=== PATIENT | male | born 1970 | race Caucasian/White ===

== ENCOUNTER 2020-09-09 16:32 | Outpatient (REF) | payer BC, SELFPAY ==
[2020-09-09 20:59] LABS: Cholesterol 216 mg/dL (<200); HDL Cholesterol 27 mg/dL (40-60); Triglyceride 403 mg/dL (<150)
[2020-09-09 21:34] LABS: LDL CHOLESTEROL 140 mg/dL (<100)
== END 2020-09-09 16:52 ==
LOC: NCHCN 16:32
PROVIDERS: PCP Internal Medicine; Visit Provider Internal Medicine
DX: Z13.220 Encounter for screening for lipoid disorders (principal)
CPT/HCPCS: 80061; 83721

== ENCOUNTER 2020-09-13 01:31 | Outpatient (CLI) | payer BC, SELFPAY ==
--- NOTE | 2020-09-13 | DI.RAD_ITS ---
EXAM: XR CHEST 2V PA LATERAL CLINICAL HISTORY: CHRONIC COUGH,R05 TECHNIQUE: 2D digital imaging was performed. COMPARISON: CR CHEST 2 VIEWS PA,LAT from 01/20/2017 Scanned documents from 01/21/2017 FINDINGS: MEDIASTINUM: Normal. HEART: Normal. PULMONARY VASCULATURE: Normal. LUNGS: Bilateral upper lobe infiltrates. There may also be peribronchial cuffing and bronchiectasis. PLEURAL SPACE: No pleural effusion or pneumothorax. BONE:Within normal limits for the patient's age. OTHER FINDINGS:Normal. IMPRESSION: Bilateral upper lobe infiltrates suspicious for pneumonia. A follow-up chest x-ray is recommended to document complete resolution. A CT scan of the chest may also be considered for further evaluation. DATA REPOSITORY: RADIATION DOSE DELIVERED:
== END 2020-09-13 01:51 ==
PROVIDERS: PCP Internal Medicine; Visit Provider Internal Medicine
DX: R91.8 Other nonspecific abnormal finding of lung field (principal); R05 Cough
CPT/HCPCS: 71046

== ENCOUNTER 2020-09-19 00:58 | Outpatient (CLI) | payer BC, SELFPAY ==
--- NOTE | 2020-09-19 | DI.CT_ITS ---
EXAM: CT CHEST W CLINICAL HISTORY: F/U ABNL CHEST XR,R91.8,CHRONIC COUGH,R05, PULMONARY INFILTRATES. TECHNIQUE: Imaging Protocol: Axial CT angiography was performed with multi-slice acquisition and mu lti-planar and/or 3D reconstructions. CONTRAST MATERIAL: Intravenous: Omnipaque 350 Contrast volume:structured data in ml COMPARISON: CR XR CHEST 2V PA LATERAL from 09/13/2020 FINDINGS: CT examination of the chest was performed with intravenous infusion of 70 cc of Omnipaque 350. There are numerous small intrapulmonary nodules seen throughout both lungs, many of these are in gene rally segmental or lobar groups. There are also numerous tree in bud opacities predominantly in the lung apices, and there are small areas of focal nodular to consolidative opacity, many of which have a spiculated or irregular appearance. Findings are most suggestive of an infectious process, conside r atypical granulomatous infection. Other etiologies including neoplastic disease not excluded on th e basis of this examination. No pleural effusion. Tracheobronchial tree appears intact. No evidence of pulmonary embolic disease. Thoracic aorta is of normal diameter, no thoracic aortic an eurysm or dissection, major branch vessels appear intact. There is mild prominence of mediastinal lymph nodes at multiple sites without gross bulky adenopathy. Images obtained through the upper abdomen show unremarkable appearance of the visualized portions of the liver, spleen, pancreas, adrenals, and kidneys. IMPRESSION: Widespread nodular, consolidative, and spiculated opacities as described above. These include tree i n bud opacities and the findings are most suggestive of an infectious process, consider mycobacterial infection including atypical mycobacterium. RADIATION DOSE DELIVERED: 553.44mGy.cm Total DLP 553.44mGy.cm Total DLP DATA REPOSITORY: All CT scans at this facility are submitted to the National Radiology Data Registry (NRDR) Dose Index Registry (DIR) with the [employer] (ACR). RADIATION OPTIMIZATION: All CT scans at this facility use at least one of these dose optimization te chniques: automated exposure control; mA and/or kV adjustment per patient size (includes targeted exa ms where dose is matched to clinical indication); or iterative reconstruction.
[2020-09-19] MEDS: Omnipaque 350 MG/ML 100 ML BTL IV (08:52)
== END 2020-09-19 01:18 ==
PROVIDERS: PCP Internal Medicine; Visit Provider Internal Medicine
DX: R91.8 Other nonspecific abnormal finding of lung field (principal); R05 Cough
CPT/HCPCS: 71260; J3490

== ENCOUNTER 2020-09-20 09:57 | Outpatient (REF) | payer BC, SELFPAY ==
[2020-09-20 21:17] LABS: Abs Immature Grans 0.02 10^3/uL (0.0-0.06); Absolute Basophil Count 0.04 10^3/uL (0.0-0.2); Absolute Eosinophil Count 0.08 10^3/uL (0.0-0.7); Absolute Lymphocyte Count 1.04 10^3/uL (1.2-3.4); Absolute Monocyte Count 0.68 10^3/uL (0.1-0.8); Absolute Neutrophil Count 5.05 10^3/uL (1.2-6.7); Basophils % 0.6; Eosinophils % 1.2; HCT 43.8 % (40.0-50.0); HGB 14.5 g/dL (13.5-17.5); Immature Grans % 0.3; Lymphocytes % 15.1; MCH 30.1 pg (27.0-33.0); MCHC 33.1 % (32.0-36.0); MCV 90.9 fL (80-95); MPV 10.1 fL (8.0-11.0); Monocytes % 9.8; Nucleated RBC 0 %; Platelet Count 327 10^3/uL (130-400); RBC 4.82 10^6/uL (4.36-5.78); RDW 12.4 % (11.8-14.1); RDW-SD 41.2 fL; WBC 6.91 10^3/uL (4.4-10.8)
[2020-09-20 21:30] LABS: ALT 40 U/L (16-63); AST 29 U/L (15-37); Albumin 4.1 g/dL (3.4-5.0); Alkaline Phosphatase 85 U/L (46-116); Anion Gap 9.3 mmol/L (3-11); BUN 18 mg/dL (7-18); Bilirubin, Total 0.5 mg/dL (0.2-1.0); CO2 26.7 mmol/L (21.0-32.0); CREATININE 1.15 mg/dL (0.70-1.30); Chloride 105 mmol/L (98-107); Glucose 92 mg/dL (74-106); Potassium 4.2 mmol/L (3.5-5.1); Sodium 141 mmol/L (136-145); Total Protein 7.6 g/dL (6.4-8.2)
== END 2020-09-20 10:17 ==
LOC: NCHCN 09:57
PROVIDERS: PCP Internal Medicine; Visit Provider Internal Medicine
DX: R91.8 Other nonspecific abnormal finding of lung field (principal)
CPT/HCPCS: 80053; 85025

== ENCOUNTER 2020-11-26 11:08 | Emergency (ER) | payer BC, SELFPAY ==
[2020-11-26 11:11] VITALS: BP 143/107; PULSE 100; RESP 18; TEMP 36.6; O2SAT 95
--- NOTE | 2020-11-26 12:04 | ED.GENADUL_ITS ---
Discharge Plan Disposition Patient Disposition: HOME Condition: Stable Discharge Details Clinical Impression: Low back pain radiating to right leg Primary Care Provider: Jose Ramon Pantoja ED Provider: Uriel Wright Home Meds and New Rx's Prescriptions: New diazepam [Valium] 5 mg tablet 5 mg PO QHS PRN (Reason: muscle spasm) Qty: 10 RF: 0 Continued lysine 1,000 MG tablet 1 PRNRF: 0 Discharge Instructions Instructions: Acute Low Back Pain (ED), Lumbar Radiculopathy (ED) Additional Instructions: Please take ibuprofen over the counter. Take 600mg by mouth every 6 hours as needed for pain. Please take acetaminophen (tylenol) - 650mg every 6 hours by mouth as needed for pain. Use lidocaine patches?dose according to label. Please contact your primary care physician to arrange follow-up. Call on Saturday. If pain persists over the next 1 to 2 weeks or worsens, you will need additional diagnostic testing. Return to the ER for any worsening or new concerning symptoms. Referrals: Jose Ramon Pantoja MD [Primary Care Provider] - Medical Decision Making 50-year-old male here with atraumatic right paraspinal back pain radiating to right buttock and posterior thigh that started yesterday morning. No bowel or bladder dysfunction. Neurologically intact. Patient has had no recent trauma and has no focal midline tenderness. There is no inflammatory changes overlying the area. Patient is not tried any analgesics or anti-inflammatory medication yet. Concern for disc herniation versus spasm with nerve root irritation. I will give Toradol 30 mg IM. Plan to continue treatment with ibuprofen, Tylenol, and lidocaine patch. I will also provide short course of Valium for nighttime use if spasm is severe. He was encouraged to follow-up with his primary care physician and to return for any worsening or new concerning symptoms. He understands that if symptoms persist additional diagnostic testing may be necessary. HPI General Mode of arrival: ambulatory . Date/Time Provider Initiated Documentation: 11/26/20 11:34 . Limitations to Documentation: no limitations . Information obtained by: patient . HPI Narrative: 50-year-old male presents with chief complaint of posterior right leg pain. Pain started yesterday mornin g upon waking and has persisted. Pain worsened yesterday after sitting in a chair for prolonged Zoom meeting. Pain was severe last night and worse with any movement of his right leg. Pain radiates from posterior right lower back into his posterior thigh. Patient has had no recent traumatic injury. No associated neck pain. No bowel or bladder dysfunction. No fevers. No rash. Related Data Home Medications Medication Instructions Recorded Confirmed lysine 1 PRN 08/21/17 09/29/20 diazepam [Valium] 5 mg PO QHS PRN #10 tab 11/26/20 Previous Rx's Medication Instructions Recorded diazepam [Valium] 5 mg PO QHS PRN #10 tab 11/26/20 Allergies Allergy/AdvReac Type Severity Reaction Status Date / Time No Known Allergies Allergy Unverified 11/26/20 11:15 General Stated Complaint: Nk/Back Pain RICO: 3 Review of Systems All systems reviewed & are unremarkable except as noted in HPI and below Constitutional Constitutional: Denies fever(s) Musculoskeletal Musculoskeletal: Reports as per HPI, Denies numbness and Denies tingling Integumentary/Breasts Skin/Breast: Denies rash Neurologic Neurologic: Denies numbness and Denies tingling [facility] Medical History Boil Colon cancer screening Surgical History Fracture, Open Treatment (10/01/12) IM NAILING R TIBIA SHAFT, ORIF FRACTURE MEDIAL MALLEOLUS Social History Smoking/Tobacco Use Status: Never Smoking risk assessment performed?: Yes Alcohol Intake: current Alcohol Intake frequency: a few times a month Drug use: Never Substance use type: does not use Do you feel safe at home: Yes Do you feel safe in your relationship?: Yes Exam Const General: cooperative and no acute distress HENMT Mouth: moist mucous membranes Eyes Conjunctivae: normal conjunctivae Sclera: normal sclerae Neck Neck: trachea midline and supple Resp Auscultation: clear to auscultation bilaterally, no rales, no rhonchi and no wheezes Cardio Rate: regular rate and not tachycardic Rhythm: regular rhythm GI Palpation: soft, not firm, no guarding, no masses, not rigid and nontender Back/Spine/Pelvis Cervical Spine: cervical ROM normal, No cervical spinal tenderness and No step off deformity Thoracic/Lumbar Spine: paraspinal tenderness (Low lumbar right), No thoracic spinal tenderness and No lumbar spinal tenderness Sacroiliac joints: on the right tender to palpation Skin General skin exam: no rashes or lesions noted Neuro General: patient alert, patient awake, patient oriented x3 and tone normal Motor: strength 5/5 throughout (Bilateral lower extremities) Sensory Exam: no sensory deficits noted (Bilateral lower extremities including no saddle anesthesia) Extrem General: no edema Psych Appearance: grossly normal Mental Status: mental status grossly normal Course Vital Signs Vital signs: Vital Signs Temperature 36.6 C 11/26/20 11:11 Pulse 100 H 11/26/20 11:11 Respiratory Rate 18 11/26/20 11:11 Blood Pressure 143/107 H 11/26/20 11:11 Pulse Oximetry 95 11/26/20 11:11 Temperature 36.6 C 11/26/20 11:11 Temperature Source Temporal Artery Scan 11/26/20 11:11 Pulse 100 H 11/26/20 11:11 Respiratory Rate 18 11/26/20 11:11 Respiratory Effort Non-Labored 11/26/20 11:15 Blood Pressure 143/107 H 11/26/20 11:11 Blood Pressure Position Sitting 11/26/20 11:11 Pulse Oximetry 95 11/26/20 11:11 Oxygen Delivery Method Room Air 11/26/20 11:11 Oxygen Flow Rate 0 11/26/20 11:11 Pain Level 3 11/26/20 11:25
[2020-11-26] MEDS: Acetaminophen 325 MG TAB 650 MG PO (12:17)
[2020-11-26] MEDS: Ketorolac 30 MG/ML VIAL IM (12:18)
[2020-11-26] MEDS: Lidocaine 5% Patch 1 PATCH TP (12:18)
[2020-11-26 12:20] VITALS: BP 111/91; PULSE 104; RESP 18; TEMP 36.8; O2SAT 97
== END 2020-11-26 12:48 | disposition home or self-care (01) ==
PROVIDERS: Emergency Provider Student in an Organized Health Care Education/Training Program; PCP Internal Medicine
DX: M54.16 Radiculopathy, lumbar region (principal)
CPT/HCPCS: 96372; 99284; J1885

== ENCOUNTER 2020-12-16 02:17 | Outpatient (CLI) | payer BC, SELFPAY ==
--- NOTE | 2020-12-16 | DI.CT_ITS ---
EXAM: CT CHEST WO CLINICAL HISTORY: COUGH, F/U ABNL CHEST CT,R05,R93.89,LUNG NODULE. TECHNIQUE: Imaging protocol: Axial computed tomography images were obtained and coronal and sagittal reformatted images were created and reviewed. COMPARISON: CT CT CHEST W from 09/19/2020 FINDINGS: Tracheobronchial tree: Patent where visualized. No areas of bronchiectasis are seen. Pulmonary parenchyma: There has been no change in the diffuse pulmonary process since 09/19/2020. Num erous areas of nodularity and consolidation are present involving all lobes of the lung. There are a reas which show a spiculated or irregular appearance in some areas which show a tree-in-bud appearanc e. The findings remain most prominent in the upper lobes bilaterally. No new abnormal areas are see n in the lungs. Mediastinum and Ines: There are stable mildly enlarged mediastinal lymph nodes. No significant axill chito adenopathy is present. Pleura: No effusion or pneumothorax. Heart: The heart is not dilated. Mild coronary artery calcification is present. No pericardial effus ion. Aorta: Thoracic aorta non-dilated. Upper abdomen: Unremarkable. Lymph nodes: Please see above. Soft tissues: Unremarkable. Bones:Normal. IMPRESSION: Stable widespread pulmonary disease. No significant change since 09/19/2020. No progression of disea se is noted. Differential considerations continue to include infectious or inflammatory process incl uding atypical infections. Neoplastic disease cannot be entirely excluded. RADIATION DOSE DELIVERED: 459.95mGy.cm Total DLP 459.95mGy.cm Total DLP DATA REPOSITORY: All CT scans at this facility are submitted to the National Radiology Data Registry (NRDR) Dose Index Registry (DIR) with the [employer] (ACR). RADIATION OPTIMIZATION: All CT scans at this facility use at least one of these dose optimization te chniques: automated exposure control; mA and/or kV adjustment per patient size (includes targeted exa ms where dose is matched to clinical indication); or iterative reconstruction.
== END 2020-12-16 02:18 | disposition home or self-care (01) ==
LOC: DI 02:18
PROVIDERS: PCP Internal Medicine; Visit Provider Internal Medicine Critical Care Medicine
DX: R05 Cough (principal); R91.8 Other nonspecific abnormal finding of lung field; R59.0 Localized enlarged lymph nodes
CPT/HCPCS: 71250

== ENCOUNTER 2020-12-23 19:09 | Outpatient (CLI) | payer BC, SELFPAY ==
[2020-12-25 15:24] LABS: COVID-19 RT-PCR UVMMC Result Negative (Negative)
== END 2020-12-23 19:10 | disposition home or self-care (01) ==
LOC: LBO 12-28 19:09
PROVIDERS: PCP Internal Medicine; Visit Provider Internal Medicine Critical Care Medicine
DX: Z20.822 Contact with and (suspected) exposure to COVID-19 (principal); Z01.818 Encounter for other preprocedural examination
CPT/HCPCS: U0003

== ENCOUNTER 2021-01-24 02:51 | Outpatient (CLI) | payer BC, SELFPAY ==
[2021-01-25 16:39] LABS: Angiotensin Converting Enzyme 40 U/L (16 - 85)
[2021-01-30 15:04] LABS: Misc Referral (MAYO) See Comments
== END 2021-01-24 02:52 | disposition home or self-care (01) ==
LOC: LBO 02:51
PROVIDERS: Internal Medicine Critical Care Medicine; PCP Internal Medicine; Visit Provider Internal Medicine
DX: D86.89 Sarcoidosis of other sites (principal); R93.89 Abnormal findings on diagnostic imaging of other specified body structures
CPT/HCPCS: 36415; 82164; 86698; 87449; 87385

== ENCOUNTER 2021-08-18 07:44 | Outpatient (CLI) | payer BC, SELFPAY ==
[2021-08-18 10:54] LABS: Source Nasal/Nares
[2021-08-19 15:23] LABS: COVID-19 PCR Negative (Negative)
== END 2021-08-18 07:45 | disposition home or self-care (01) ==
LOC: LBO 07:47
PROVIDERS: PCP Internal Medicine; Visit Provider Internal Medicine Critical Care Medicine
DX: Z20.822 Contact with and (suspected) exposure to COVID-19 (principal); Z01.818 Encounter for other preprocedural examination
CPT/HCPCS: 87635

== ENCOUNTER 2021-08-25 10:13 | Outpatient (CLI) | payer BC, SELFPAY ==
--- NOTE | 2021-08-25 10:30 | RT.EKG_ITS ---
APPROVED REPORT Exam: Resting ECG Reason for Exam: SARCOIDOSIS Patient Location: O HR:74 bpm ECG Measurements Heart Rate 74 AXIS VT 161 P 55 QRSd 88 QRS 48 QT 401 T 40 QTc 447 Conclusion Sinus rhythm...normal P axis, V-rate 60- 99 Normal Electrocardiogram
== END 2021-08-25 10:14 | disposition home or self-care (01) ==
LOC: RT 10:14
PROVIDERS: PCP Internal Medicine; Visit Provider Internal Medicine
DX: D86.9 Sarcoidosis, unspecified (principal)
CPT/HCPCS: 93005; 93010

== ENCOUNTER 2021-09-07 12:06 | Outpatient (REF) | payer BC, SELFPAY ==
[2021-09-09 09:34] LABS: Calcium Urine 33.3 mg/dL (See Note); Calcium Urine 24 hr 366 mg/24hrs (100-300); Timed Urine Volume 1100 mL
== END 2021-09-07 12:07 | disposition home or self-care (01) ==
LOC: LBN 12:06
PROVIDERS: PCP Internal Medicine; Visit Provider Internal Medicine Critical Care Medicine
DX: D86.9 Sarcoidosis, unspecified (principal)
CPT/HCPCS: 81050; 82340

== ENCOUNTER 2023-02-26 13:03 | Outpatient (CLI) | payer OTHER, SELFPAY ==
[2023-02-26 14:25] LABS: Abs Immature Grans 0.03 10^3/uL (0.0-0.06); Absolute Basophil Count 0.04 10^3/uL (0.0-0.2); Absolute Eosinophil Count 0.07 10^3/uL (0.0-0.7); Absolute Lymphocyte Count 1.05 10^3/uL (1.2-3.4); Absolute Monocyte Count 0.55 10^3/uL (0.1-0.8); Absolute Neutrophil Count 6.64 10^3/uL (1.2-6.7); Basophils % 0.5; Eosinophils % 0.8; HCT 44.1 % (40.0-50.0); HGB 14.8 g/dL (13.5-17.5); Immature Grans % 0.4; Lymphocytes % 12.5; MCH 30.3 pg (27.0-33.0); MCHC 33.6 % (32.0-36.0); MCV 90 fL (80-95); MPV 9.3 fL (8.0-11.0); Monocytes % 6.6; Neutrophils % 79.2; Platelet Count 265 10^3/uL (130-400); RBC 4.89 10^6/uL (4.36-5.78); RDW-SD 46.2 fL; WBC 8.38 10^3/uL (4.4-10.8)
[2023-02-26 14:50] LABS: ALT 28 U/L (16-63); AST 11 U/L (15-37); Albumin 3.8 g/dL (3.4-5.0); Alkaline Phosphatase 80 U/L (46-116); Anion Gap 5.4 mmol/L (3-11); BUN 16 mg/dL (7-18); Bilirubin, Total 0.4 mg/dL (0.2-1.0); CO2 28.6 mmol/L (21.0-32.0); CREATININE 0.9 mg/dL (0.70-1.30); Chloride 107 mmol/L (98-107); Estimated GFR 102.12 (mL/min/1.73m2); Glucose 90 mg/dL (74-106); Potassium 4.1 mmol/L (3.5-5.1); Sodium 141 mmol/L (136-145); Total Protein 7.3 g/dL (6.4-8.2)
== END 2023-02-26 13:04 | disposition home or self-care (01) ==
LOC: LBO 13:04
PROVIDERS: PCP Internal Medicine; Visit Provider Internal Medicine Critical Care Medicine
DX: D86.0 Sarcoidosis of lung (principal)
CPT/HCPCS: 36415; 80053; 85025

== ENCOUNTER 2023-02-26 13:50 | Outpatient (CLI) | payer OTHER, SELFPAY ==
--- NOTE | 2023-02-26 13:45 | RT.EKG_ITS ---
APPROVED REPORT Exam: Resting ECG Reason for Exam: SARCOIDOSIS Patient Location: O HR:65 bpm ECG Measurements Heart Rate 65 AXIS GA 159 P 64 QRSd 83 QRS 52 QT 397 T 50 QTc 413 Conclusion Sinus rhythm...normal P axis, V-rate 50- 99 Normal Electrocardiogram
== END 2023-02-26 13:51 | disposition home or self-care (01) ==
LOC: CARDOPNVT 13:50
PROVIDERS: PCP Internal Medicine; Visit Provider Internal Medicine Critical Care Medicine
DX: D86.86 Sarcoid arthropathy (principal)
CPT/HCPCS: 93005; 93010

== ENCOUNTER 2023-11-15 09:09 | Day surgery (SDC) | payer OTHER, SELFPAY ==
--- NOTE | 2023-11-14 20:35 | PDOC.DSDIS_ITS ---
Date of service: 11/15/23 Time of Service: 10:54 Discharge Plan Disposition Patient Disposition: Home Condition: Good Discharge Details Reason For Visit: Colon cancer screening Attending Provider: Frances Prado Primary Care Provider: Jose Ramon Pantoja Home Meds and New Rx's Prescriptions: Continued methotrexate sodium 15 mg tablet 15 mg PO QWEEK folic acid 1 mg tablet 1 mg PO DAILY lysine 1,000 MG tablet 1,000 mg PO DAILY PRN Discontinued bisacodyl [Dulcolax (bisacodyl)] 5 mg tablet,delayed release (DR/EC) 5 mg PO ONCE Qty: 4 0RF Rx Instructions: Take per colonoscopy instructions provided by ordering providers office polyethylene glycol 3350 17 gram/dose powder 17 g PO ONCE Qty: 238 0RF Rx Instructions: Take per colonoscopy instructions provided by ordering providers office Discharge Instructions Additional Instructions: DSU Colonoscopy Post- Op Instructions Instructions for Everyone who is given Anesthesia: For your safety, please do the following for the next twenty-four (24) hours: *Do Not operate a motor vehicle (car, truck, motorcycle, etc.) *Do Not drink alcoholic beverages or use any recreational drugs for the first 24 hours or while taking pain medications. The medications in your body may have a reaction that can be dangerous. *Do Not make any important decisions or sign any important papers. -Okay to resume methotrexate on Saturday Findings: Mild polyp in the colon. Most likely benign. Otherwise normal colon. Follow up: My office will send you a letter in 2 to 3 weeks time with the results of the biopsy and when we want to repeat the colonoscopy, most likely 7 to 10 years time. 1. No lifting over 20 pounds or strenuous activity for the first 24 hours after your procedure. After 24 hours there are no restrictions on your activity but you may feel fatigued for a few days. 2. After you arrive home you may have a light meal and return to your normal diet as you can tolerate it without feeling sick to your stomach. 3. You may have a bloated, gaseous feeling in your belly (abdomen) after a colonoscopy. Passing gas and belching will help. Walking or lying down on your left side with your knees flexed may relieve the discomfort. Call the office at [phone] (Office) or [phone] (Hospital) right away if you notice any of the following: a.Vomiting of blood or ?coffee ground stools?. b.Rectal bleeding 1Tbsp, blood clots or continuous bleeding. c.Severe belly (abdominal) pain. d.A hard distended belly (abdomen) and an inability to pass gas. 4. Please don?t expect to have a normal BM (bowel movement) for 2-3 days after your procedure. 5. If there are questions regarding the findings of your procedure, please contact your doctor 6. If you are unable to contact your doctor with a problem, contact the hospital at [phone]. 7. Continue all your regular medications unless directed otherwise. I understand the above instructions and have no questions. Signature of Patient or Adult Escort Name of Responsible Adult Escort Signature of Nurse Date/Time 4 Activity:: see above Diet:: See above Discharge Orders Discharge Orders: Discharge Order (Routine); Ordered 11/15/23 Ordered By: Frances Prado DS: Diagnosis Discharge Diagnosis (1) Sarcoidosis: Status: Acute (2) Screening for malignant neoplasm of colon performed: Status: Acute Asessment and Plan: The patient is seen and examined after their colonoscopy.? The patient has been able to pass gas.? They are not having abdominal pain.? They have been able to tolerate liquids and a snack.? They do not have any nausea or vomiting.? They are not having any chest pain or shortness of breath.??? They are not having any rectal bleeding. Their vital signs have been stable-see nursing notes. We discussed findings during their colonoscopy, and any biopsies that were done/polyps that were removed. The patient will be sent a letter with any biopsy results, and when to repeat the colonoscopy.-see discharge instructions. Patient was given explicit instructions to follow-up regarding colonoscopy-refer to discharge instructions.? We reviewed resumption of medications. Patient verbalized understanding and discharged in stable and satisfactory condition- See nursing notes. (3) Colon polyp: Status: Acute
--- NOTE | 2023-11-14 20:38 | W.COLOREPORT ---
Date of service: 11/15/23 Time of Service: 10:56 Colonoscopy Report Date of procedure: 11/15/23 Pre-op diagnosis general: Colon cancer screening Post-op diagnosis procedure note: other (Small polyp at 20 cm) Surgeon: Frances Prado Anesthesia Type: General:No Airway Estimated blood loss (mL): 1 Pathology: other Complications: None Disposition: same day Prep: Miralax/Dulcolax Retraction Time: 10 Procedure Description: After informed consent was obtained the patient was taken to the procedure room and placed in a left decubitous position. Monitors were applied and a time out was done. The patients name, date of , procedure, allergies to medications and metal in their body was reviewed. The patient was then sedated. Once sedated and comfortable a rectal exam was done. External exam was normal. Internal exam revealed a normal sphincter tone and no palpable masses. The prostate no no masses The scope was then introduced and retrofelexed. No internal hemorrhoids were identified. The scope was then advanced to the cecum without difficulty. The TI and appendiceal orifice were identified. The prep was BBPS 3 in all segments for a total of 9. The scope was then slowly retracted over 10 minutes back into the rectum. He has a flat 0.5 cm polyp at 20 cm. This is removed with a cold biting forcep. All specimen is retrieved and no bleeding is noted. No AVMs or diverticula are visualized today. Mucosa is pink and healthy with a normal vascular pattern.. The scope was removed and the patient was woken up and taken back to Same day surgery in stable condition. The patient tolerated the procedure well and there were no immediate complications. Follow up: The patient should follow up in 7-10 years, pathology pending, unless they develop changes in bowel habits or other new gastrointestinal complaints.
[2023-11-15 09:24] VITALS: BP 110/81; PULSE 67; RESP 16; TEMP 36.6; O2SAT 96
--- NOTE | 2023-11-15 09:38 | W.ANESPRE ---
General Info Date of Service Date Performed: 11/15/23 Height: 5 ft 7 in Weight: 79.5 kg Body Mass Index (BMI): 27.4 Surgical Procedure: Operation Date: 11/15/23 09:50 Proposed Procedure Side Surgeon gael Prado, DO Meds Allergies and Home Medications Allergies Allergy/AdvReac Type Severity Reaction Status Date / Time No Known Allergies Allergy Unverified 11/14/23 11:20 Home Medication Medication Instructions Recorded lysine 1,000 mg tablet 1,000 mg PO DAILY PRN 08/21/17 folic acid 1 mg tablet 1 mg PO DAILY 09/12/23 methotrexate sodium 15 mg tablet 15 mg PO QWEEK 09/12/23 Current Visit Medications: Current Medications Generic Name Dose Route Start Last Admin Trade Name Freq PRN Reason Stop Dose Admin Hyoscyamine Sulfate 0.125 mg 11/15/23 08:29 Hyoscyamine 0.125 Mg Sl/Oral/Chew SL 12/15/23 08:28 DIRECTED PRN Ringer's Solution 1,000 mls @ 80 mls/hr 11/15/23 06:00 IV 11/15/23 23:59 INFUSION DEMETRIUS IV Miscellaneous Supplies 1 each 11/15/23 06:00 Iv Access IV 11/15/23 23:59 DIRECTED DEMETRIUS Ondansetron HCl 4 mg 11/15/23 08:29 Ondansetron 4 Mg/2 Ml Vial IVP 12/15/23 08:28 Q4H PRN PRN Nausea / Vomiting Sodium Chloride 0 ml 11/15/23 06:00 Normal Saline Flush 10 Ml Syr IV 11/15/23 23:59 PRN PRN Sodium Chloride 0 ml 11/15/23 06:00 Normal Saline 10 Ml Vial IJ 11/15/23 23:59 DIRECTED PRN Sterile Water 0 ml 11/15/23 06:00 Water,Injection,Sterile 10 Ml Vial IJ 11/15/23 23:59 DIRECTED PRN PFSH Active Problems Active Problems: Problem Status Onset Code Screening for malignant neoplasm of colon performed Z12.11 Sarcoidosis D86.9 Sensorineural hearing loss (SNHL) of both ears H90.3 Colon cancer screening Z12.11 Medical History Medical History Chronic cough Pulmonary infiltrate Lumbar back pain Pulmonary sarcoidosis Boil Surgical History Surgical History Fracture, Open Treatment (10/01/12) IM NAILING R TIBIA SHAFT, ORIF FRACTURE MEDIAL MALLEOLUS Tobacco Smoking/Tobacco Use Status: Never Alcohol Alcohol Intake: former Substance Use Substance use: Never Substance use type: does not use Vital Signs and Lab Results Vital Signs Most Recent Vital Signs in EMR: Most Recent Vital Signs Temp Pulse Resp BP Pulse Ox 36.6 C 67 16 110/81 96 11/15/23 09:24 11/15/23 09:24 11/15/23 09:24 11/15/23 09:24 11/15/23 09:24 Lab Results Blood Type / Crossmatch: No Data to Display Complete Blood Count: No Data to Display Complete Metabolic Panel: No Data to Display Liver Function Panel: No Data to Display Coagulation Panel: No Data to Display Cardiac Panel: No Data to Display Arterial Blood Gas: No Data to Display Venous Blood Gas: No Data to Display Pancreas Panel: No Data to Display Thyroid Panel: No Data to Display Infectious Disease: No Data to Display Blood Cultures: No Data to Display Toxicology Panel: No Data to Display Anesthesia Assessment and Plan Anesthesia History Personal History: No History of Anesthesia Complications Family History: No Family History of Anesthesia Complications Exercise Tolerance Exercise Tolerance: Metabolic Equivalents>4 Cardiac & Pulmonary Exam Cardiac Exam: Normal S1/S2 Heart Sounds Pulmonary Exam: Clear Bilateral Breath Sounds Implantable Cardiac Device Does patient have a Pacemaker or an ICD?: No Airway Exam Known Difficult Airway: No Mallampati Class: 3 Mouth Opening: Normal (> 3cm) Thyromental Distance: Greater than 3 cm Neck Range of Motion: Full ROM Neck Circumference: Normal Teeth Condition: Normal Dentition ASA Classification ASA Score: ASA 2 Emergency Case?: No NPO Status NPO Status: NPO Clears >2 hours, Solids >8 hours Anesthesia Plan Resuscitation Status: Full Code Anesthesia Technique: General Anesthesia Airway Planned: Natural Airway Monitors Used: Standard Monitors Preoperative Comments:: 53 yo male for colo. Sig PMHx: sarcoidosis (methotrexate, doing well), back pain. never smoker EKG: sinus. PFTs: normal.
[2023-11-15 09:42] VITALS: BMI 27.4
[2023-11-15] MEDS: Lactated Ringers 1,000 ML 80 ML IV (09:48)
--- NOTE | 2023-11-15 10:34 | BOWEL_PTH ---
PATIENT: [place]ce [place] LOC: [facility] U#:[id number] AGE/SX: 53/M ROOM: RE11/15/[address]: Frances Prado : 1970 BED: DIS: 11/15/2023 SPEC #: [id number] RECD: 11/15/23 12:50 STATUS: CHAPARRITA RE #: [id number] NICHOLE: 11/15/23 10:[address]: Frances Prado DEPT: Surgical Specimen RECD BY: Theresa Fenton ENTERED: 11/15/23 12:51 SP TYPE: Bowel OTHR DR: Jose Ramon Pantoja Tissues: 1 - BIOPSY BOWEL Procedures: GROSS AND MICRO LEVEL 4 Comments: [id number]
[2023-11-15 10:42] VITALS: BP 106/74; PULSE 86; RESP 18; TEMP 36.6; O2SAT 86
[2023-11-15 11:07] VITALS: BP 106/85; PULSE 70; RESP 16; TEMP 36.7; O2SAT 96
--- NOTE | 2023-11-15 11:36 | W.ANESPOSTOP ---
Postoperative Evaluation Date, Time and Location Date Performed: 11/15/23 Time Performed: 11:11 Patient Location: Day Surgery Unit Vital Signs Most Recent Imported Vital Signs: Most Recent Vital Signs Temp Pulse Resp BP Pulse Ox 36.7 C 70 16 106/85 96 11/15/23 11:07 11/15/23 11:07 11/15/23 11:07 11/15/23 11:07 11/15/23 11:07 Pain Score Most Recent Pain Score: Most Recent Pain Score Pain Level 0 11/15/23 11:07 Assessment Mental Status: Awake (Alert & Oriented to Patient Baseline) Airway and Respiratory Function: Patent airway with normal (patient baseline) respiratory exam Cardiovascular Function: Hemodynamically Stable Hydration Status: Adequately Hydrated Nausea & Vomiting: No Nausea or Vomiting Pain: Pt. Denies Any Pain Peripheral Nerve Block: Patient did not receive a nerve block
== END 2023-11-15 11:29 | disposition home or self-care (01) ==
LOC: SUR 09:10
PROVIDERS: PCP Internal Medicine; Visit Provider Surgery
PROC: 0DJD8ZZ Inspection of Lower Intestinal Tract, Via Natural or Artificial Opening Endoscopic (ICD-10-PCS; CPT 45378; principal; 2023-11-15 09:45)
DX: Z12.11 Encounter for screening for malignant neoplasm of colon; K63.5 Polyp of colon; K63.89 Other specified diseases of intestine
CPT/HCPCS: 45380; 88305; J2704

== ENCOUNTER 2024-04-22 07:45 | Outpatient (REF) | payer OTHER, SELFPAY ==
[2024-04-22 16:47] LABS: Anion Gap 8.9 mmol/L (3-11); BUN 20 mg/dL (7-18); CO2 28.1 mmol/L (21.0-32.0); CREATININE 0.9 mg/dL (0.70-1.30); Calculated LDL 169 mg/dL (<100); Chloride 106 mmol/L (98-107); Cholesterol 233 mg/dL (<200); Estimated GFR 100.86 (mL/min/1.73m2); Glucose 96 mg/dL (74-106); HDL Cholesterol 52 mg/dL (40-60); Potassium 4.3 mmol/L (3.5-5.1); Sodium 143 mmol/L (136-145); Triglyceride 60 mg/dL (<150)
== END 2024-04-22 07:46 | disposition home or self-care (01) ==
LOC: NCHCN 07:45
PROVIDERS: PCP Family Medicine; Visit Provider Family Medicine
DX: Z00.00 Encounter for general adult medical examination without abnormal findings (principal); Z13.220 Encounter for screening for lipoid disorders; Z13.228 Encounter for screening for other metabolic disorders
CPT/HCPCS: 80048; 80061

== ENCOUNTER 2024-05-12 09:32 | Inpatient (IN) | payer OTHER, SELFPAY ==
[2024-05-12] VITALS (48 sets, daily range): BP systolic 88–126; BP diastolic 51–90; PULSE 67–90; RESP 9–21; TEMP 36.5–37.7; O2SAT 89–97
[2024-05-12 09:54] LABS: Abs Immature Grans 0.29 10^3/uL (0.0-0.06); Absolute Basophil Count 0.07 10^3/uL (0.0-0.2); Absolute Eosinophil Count 0.09 10^3/uL (0.0-0.7); Absolute Lymphocyte Count 1.03 10^3/uL (1.2-3.4); Absolute Monocyte Count 0.68 10^3/uL (0.1-0.8); Absolute Neutrophil Count 10.94 10^3/uL (1.2-6.7); Basophils % 0.5 %; Eosinophils % 0.7 %; HCT 42.1 % (40.0-50.0); HGB 14.2 g/dL (13.5-17.5); Immature Grans % 2.2 %; Lymphocytes % 7.9 %; MCH 30.7 pg (27.0-33.0); MCHC 33.7 % (32.0-36.0); MCV 91 fL (80-95); MPV 9.8 fL (8.0-11.0); Monocytes % 5.2 %; Neutrophils % 83.5 %; Platelet Count 266 10^3/uL (130-400); RBC 4.63 10^6/uL (4.36-5.78); RDW 13.2 % (11.8-14.1); RDW-SD 44.3 fL
[2024-05-12] MEDS: Ondansetron 4 MG/2 ML VIAL IVP (09:59)
[2024-05-12] MEDS: fentaNYL 100 MCG/2 ML VIAL IVP (09:59)
--- NOTE | 2024-05-12 10:05 | DI.RAD_ITS ---
Exam(s) XR ANKLE RT COMPLETE EXAM: XR ANKLE RT COMPLETE CLINICAL HISTORY: ankle trauma. TECHNIQUE: 2D digital imaging was performed. COMPARISON: No exams were available for comparison FINDINGS: 3 views There is fracture dislocation of the ankle in this patient who has a long intramedullary álvaro in the t ibia as well as an independent screw also noted in the distal tibia. Fracture of the distal fibula significantly displaced. Medial malleolus fracture also noted. No fra cture of the talar dome evident. Medial malleolus fracture also noted. IMPRESSION: Fracture dislocation of the tibiotalar ankle joint. DATA REPOSITORY: RADIATION DOSE DELIVERED:
[2024-05-12 10:08] LABS: ALT 46 U/L (16-63); AST 34 U/L (15-37); Albumin 3.7 g/dL (3.4-5.0); Alkaline Phosphatase 82 U/L (46-116); BUN 17 mg/dL (7-18); Bilirubin, Total 0.54 mg/dL (0.2-1.0); CREATININE 0.9 mg/dL (0.70-1.30); Calcium 8.6 mg/dL (8.5-10.1); Chloride 106 mmol/L (98-107); Estimated GFR 100.86 (mL/min/1.73m2); Glucose 144 mg/dL (74-106); Potassium 3.4 mmol/L (3.5-5.1); Sodium 142 mmol/L (136-145); Total Protein 7.1 g/dL (6.4-8.2)
[2024-05-12] MEDS: Normal Saline 1,000 ML 125 ML IV (10:08)
[2024-05-12] MEDS: Propofol 200 MG/20 ML VIAL 80 MG IVP (10:22)
[2024-05-12 10:26] LABS: INR 1.1 (0.9-1.1); Prothrombin Time 10.9 sec (9.1-11.1)
--- NOTE | 2024-05-12 10:34 | RESPIRATORY ---
RT paged to ED to assist with conscious sedation. Pt placed on NC w/EtCO2 monitoring, suction, ambu bag and oral/nasal airways at bedside. Pt tolerated procedure with vitals HR 70, SpO2 94%, EtCO2 28.
[2024-05-12] MEDS: Ketorolac 15 MG/ML VIAL 10 MG IVP (10:45)
[2024-05-12] MEDS: ACETAMINOPHEN 1,000 MG/100 ML BTL 400 MG IVPB ×2 (10:45→17:01)
--- NOTE | 2024-05-12 11:50 | DI.RAD_ITS ---
Exam(s) XR ANKLE RT COMPLETE EXAM: XR ANKLE RT COMPLETE CLINICAL HISTORY: ankle trauma. TECHNIQUE: 2D digital imaging was performed. COMPARISON: CR XR ANKLE RT COMPLETE from 05/12/2024 FINDINGS: 3 in cast views Significant improved alignment of the by malleolar fracture dislocation of the right ankle. Long int ramedullary álvaro again noted in the tibia as well as in independent screw in the medial malleolus. IMPRESSION: Improved alignment. DATA REPOSITORY: RADIATION DOSE DELIVERED:
--- NOTE | 2024-05-12 11:51 | DI.RAD_ITS ---
Exam(s) XR LUMBAR SPINE AP, LAT EXAM: XR LUMBAR SPINE AP, LAT CLINICAL HISTORY: back pain. TECHNIQUE: 2D digital imaging was performed. COMPARISON: CT CT CHEST WO from 04/13/2022 FINDINGS: 3 views There is slight loss of height of superior endplate of L2 as well as T12, age indeterminate. However , the T12 superior endplate appeared unremarkable on a chest CT scan of April 2022. Disc spaces exhibit normal height. No listhesis. No scoliosis. Sacroiliac joints unremarkable. IMPRESSION: Slight loss of height of superior endplates of T12 and L2. No retropulsed posterior cortex noted at these levels. No disc space narrowing. No listhesis. No facet malalignment. DATA REPOSITORY: RADIATION DOSE DELIVERED:
--- NOTE | 2024-05-12 13:02 | DI.CT_ITS ---
Exam(s) CT THORACIC LUMBAR SPINE WO EXAM: CT THORACIC LUMBAR SPINE WO CLINICAL HISTORY: BACK PAIN. TECHNIQUE: Imaging Protocol: Axial computed tomography images with coronal and sagittal reformatted images were created and reviewed. CONTRAST MATERIAL: Intravenous: Omnipaque 350 Contrast volume:structured data in ml Contrast route:I V - Oral: yes / no COMPARISON: CR XR LUMBAR SPINE AP, LAT from 05/12/2024 FINDINGS: OSSEOUS: There is mild acute appearing compression fracture of superior endplate of L2 with approxima tely 10 percent height loss. No retropulsed cortex. No canal compromise. There is also an acute appearing compression fracture of the superior endplate of T12, also without r etropulsed cortex and no canal compromise. On the sagittal images there is a fracture evident in the left 11th rib but only partially included in the field of view. Increased markings in both lung bas es noted. IMPRESSION: Mild compression fractures of T12 and L2 without canal compromise at these levels. There also appear s to be a fracture of the left 11th rib. Not completely included in the field of view. Cannot exclu de additional rib fractures. If clinically indicated CT scan of the chest abdomen pelvis can be perf ormed. Report and recommendations called by myself to ER physician. RADIATION DOSE DELIVERED: 1,240.37mGy.cm Total DLP DATA REPOSITORY: All CT scans at this facility are submitted to the National Radiology Data Registry (NRDR) Dose Index Registry (DIR) with the [employer] (A[employer]). RADIATION OPTIMIZATION: All CT scans at this facility use at least one of these dose optimization te chniques: automated exposure control; mA and/or kV adjustment per patient size (includes targeted exa ms where dose is matched to clinical indication); or iterative reconstruction.
--- NOTE | 2024-05-12 13:02 | DI.CT_ITS ---
Exam(s) CT LOWER EXTREMITY RT WO EXAM: CT LOWER EXTREMITY RT WO CLINICAL HISTORY: Right Ankle Fracture-Dislocation. TECHNIQUE: Imaging Protocol: Axial computed tomography images with coronal and sagittal reformatted images were created and reviewed. CONTRAST MATERIAL: None COMPARISON: Plain films from earlier today were reviewed FINDINGS: This study is performed post closed reduction of fracture dislocation of the ankle. OSSEOUS: Long intramedullary álvaro in the tibia is seen and there is a healed fracture site in the diap hysis of the tibia around the mid level. An additional independent screw is seen horizontally orient ated just below the inferior tip of the intramedullary álvaro, just above the tibial plafond and. There is an oblique moderately displaced fracture of the distal fibula approximately 2 cm above the t ip of the lateral malleolus. Mild displacement. There is other fracture of the medial malleolus. T he triangular fracture fragment measures 8 by 8 mm and is located 7 mm inferior to the parent bone. The fracture of the medial malleolus is below the level of the independent horizontal screw. There i s no fracture line at the exact level of this screw. There is thin calcification parallel to the volar techs of the posterior malleolus. Probably periost eal stripping at this level. Os trigonum is incidentally noted. Talar dome is intact. There are no fractures of the talus nor of the calcaneus and no incidental osseous tarsal coalition evident. Cuboid, navicular, and cuneiforms appear intact as do the visualized proximal metatarsals. IMPRESSION: Fractures of the malleoli as described above. Mild widening of the mortise but findings are improved since close reduction earlier today. Pre-existing long intramedullary álvaro as well as independent sc rew again noted in the tibia. RADIATION DOSE DELIVERED: 492.84mGy.cm Total DLP DATA REPOSITORY: All CT scans at this facility are submitted to the National Radiology Data Registry (NRDR) Dose Index Registry (DIR) with the [employer] (ACR). RADIATION OPTIMIZATION: All CT scans at this facility use at least one of these dose optimization te chniques: automated exposure control; mA and/or kV adjustment per patient size (includes targeted exa ms where dose is matched to clinical indication); or iterative reconstruction.
--- NOTE | 2024-05-12 13:56 | W.PC.ACHO ---
Registration Status: REG ER Primary Language: Preferred Language: Tajik ED Information & Data Chief Complaint Orthopedic 05/12/24 09:41 Chief Complaint Orthopedic 05/12/24 09:34 Triage Note obvious deformity right 05/12/24 09:34 ankle with mid-lower back pain. cutting trees stump hit from behind Medical / Surgical History (Last Reviewed 11/15/23 @ 09:29 by Cat Morris, RN) Chronic cough Pulmonary infiltrate Lumbar back pain Pulmonary sarcoidosis Boil (Last Updated 12/16/23 @ 12:05 by Yvonne Washburn RN) History of colonoscopy (~11/2023) Fracture, Open Treatment (10/01/12) Most Recent Vital Signs Temperature 36.5 C 05/12/24 09:34 Temperature Source Temporal Artery Scan 05/12/24 09:34 Pulse 77 05/12/24 12:31 Pulse 78 05/12/24 12:31 Respiratory Rate 14 05/12/24 10:20 Respiratory Effort Normal, Non-Labored 05/12/24 09:41 Blood Pressure 112/82 05/12/24 12:31 Blood Pressure Mean 91 05/12/24 12:31 Pulse Oximetry 94 05/12/24 12:31 Respiratory End-tidal CO2 35 05/12/24 11:10 Oxygen Delivery Method Room Air 05/12/24 09:34 Oxygen Flow Rate 0 05/12/24 09:34 Pain Level 2 05/12/24 12:34 Allergies No Known Allergies Allergy (Unverified 05/12/24 09:39) Precautions Isolation Standard precaution 05/12/24 09:41 Active Medications Generic Name Dose Route Start Last Admin Trade Name Freq PRN Reason Stop Dose Admin Sodium Chloride 1,000 mls @ 125 mls/hr 05/12/24 09:45 05/12/24 11:45 Saline 1000ml Bag IV Infused INFUSION DEMETRIUS Infusion IV IV Catheter Type [Left Saline Lock Antecubital] IV Catheter Gauge [Left 18 Antecubital] Diet Orders Category Date Time Status Nothing Per Oral [DIET] Nutrition 05/12/24 Breakfast Active Diagnostics 05/12/24 Range/Units 09:39 WBC 13.10 H (4.4-10.8) 10^3/uL RBC 4.63 (4.36-5.78) 10^6/uL Hgb 14.2 (13.5-17.5) g/dL Hct 42.1 (40.0-50.0) % MCV 91 (80-95) fL MCH 30.7 (27.0-33.0) pg MCHC 33.7 (32.0-36.0) % RDW 13.2 (11.8-14.1) % Plt Count 266 (130-400) 10^3/uL MPV 9.8 (8.0-11.0) fL Immature Gran % 2.2 % Neutrophils % 83.5 % Lymphocytes % 7.9 % Monocytes % 5.2 % Eosinophils % 0.7 % Basophils % 0.5 % Nucleated RBC % 0.0 (0.0-0.3) % Absolute Neutrophils 10.94 H (1.2-6.7) 10^3/uL Absolute Lymphocytes 1.03 L (1.2-3.4) 10^3/uL Absolute Monocytes 0.68 (0.1-0.8) 10^3/uL Absolute Eosinophils 0.09 (0.0-0.7) 10^3/uL Absolute Basophils 0.07 (0.0-0.2) 10^3/uL PT 10.9 (9.1-11.1) sec INR 1.1 (0.9-1.1) Sodium 142 (136-145) mmol/L Potassium 3.4 L (3.5-5.1) mmol/L Chloride 106 (98-107) mmol/L Carbon Dioxide 26.0 (21.0-32.0) mmol/L Anion Gap 10.0 (3-11) mmol/L BUN 17 (7-18) mg/dL Creatinine 0.9 (0.70-1.30) mg/dL Est GFR (CKD-EPI 2020) 100.86 (mL/min/1.73m2) Glucose 144 H (74-106) mg/dL Calcium 8.6 (8.5-10.1) mg/dL Total Bilirubin 0.54 (0.2-1.0) mg/dL AST 34 (15-37) U/L ALT 46 (16-63) U/L Alkaline Phosphatase 82 (46-116) U/L Total Protein 7.1 (6.4-8.2) g/dL Albumin 3.7 (3.4-5.0) g/dL ABO/Rh O Negative Antibody Screen NEGATIVE Intake and Output - 24 Hour Total 07/02/24 09:23 thru 05/12/24 11:45 Intake Total 1100 Balance 1100 Weight 82.554 kg Intake: IV 1100 Falls Risk Assessment History of Falls Admit Due to Fall 05/12/24 12:34 Contributing Factors No Factors 05/12/24 12:34 Ambulatory Aids Uses ambulatory device + 05/12/24 12:34 Tubes/Lines With any additional score 05/12/24 12:34 Gait Evaluation W/any additional score 05/12/24 12:34 Cognition No cognitive impairment 05/12/24 12:34 Fall Total Score 95 05/12/24 12:34 Level of Risk Maximum Risk 05/12/24 12:34 Notes 05/12/24 10:34 Respiratory by Alejandra Gillis RT paged to ED to assist with conscious sedation. Pt placed on NC w/EtCO2 monitoring, suction, ambu bag and oral/nasal airways at bedside. Pt tolerated procedure with vitals HR 70, SpO2 94%, EtCO2 28. Initialized on 05/12/24 10:34 - END OF NOTE v v v v v v v v v Sending and/or Receiving Nurses: Please use comment section below to note any information pertinent to the patient hand-off not included above. Information / Comments: Report received from:Dawit Deng RN
--- NOTE | 2024-05-12 14:09 | ANES.PREOP_ITS ---
General Info Date of Service Date Performed: 05/13/24 Height: 5 ft 7 in Weight: 82.554 kg Body Mass Index (BMI): 28.5 Surgical Procedure: Operation Date: 05/12/24 15:10 Proposed Procedure Side Surgeon p Ankle ORIF Right Charles Roberts MD Meds Allergies and Home Medications Allergies Allergy/AdvReac Type Severity Reaction Status Date / Time No Known Allergies Allergy Unverified 05/12/24 09:39 Home Medication Medication Instructions Recorded lysine 1,000 mg tablet 1,000 mg PO DAILY PRN 08/21/17 folic acid 1 mg tablet 1 mg PO DAILY 09/12/23 acetaminophen 500 mg tablet 1,000 mg (2 x 500 mg) PO Q8H PRN 05/12/24 pain #90 tabs aspirin 81 mg tablet,delayed 81 mg PO BID 30 days #60 tabs 05/12/24 release ibuprofen 600 mg tablet 600 mg PO TID PRN pain #60 tabs 05/12/24 Current Visit Medications: Current Medications Generic Name Dose Route Start Last Admin Trade Name Freq PRN Reason Stop Dose Admin Sodium Chloride 1,000 mls @ 125 mls/hr 05/12/24 09:45 05/12/24 11:45 Saline 1000ml Bag IV Infused INFUSION DEMETRIUS Infusion Ondansetron HCl 4 mg/ Sodium 52 mls @ 200 mls/hr 05/12/24 11:15 Chloride IVPB Q6H PRN PRN IV Miscellaneous Supplies 1 each 05/12/24 09:45 Iv Access-Emergency Dept IV DIRECTED [facility] IV Miscellaneous Supplies 1 each 05/12/24 11:15 Iv Access IV DIRECTED DEMETRIUS Oxycodone HCl 0 mg 05/12/24 11:15 Oxycodone 5 Mg Tab PO Q3H PRN PRN Pain Sodium Chloride 0 ml 05/12/24 09:43 Normal Saline Flush 10 Ml Syr IVP PRN PRN Sodium Chloride 0 ml 05/12/24 20:00 Normal Saline Flush 10 Ml Syr IVP BID DEMETRIUS Sodium Chloride 0 ml 05/12/24 09:43 Normal Saline 10 Ml Vial IJ DIRECTED PRN Sodium Chloride 0 ml 05/12/24 11:15 Normal Saline Flush 10 Ml Syr IVP PRN PRN Sodium Chloride 0 ml 05/12/24 20:00 Normal Saline Flush 10 Ml Syr IVP BID DEMETRIUS Sodium Chloride 0 ml 05/12/24 11:15 Normal Saline 10 Ml Vial IJ DIRECTED PRN PFSH Active Problems Active Problems: Problem Status Onset Code Colon polyp K63.5 Screening for malignant neoplasm of colon performed Z12.11 Sarcoidosis D86.9 Sensorineural hearing loss (SNHL) of both ears H90.3 Colon cancer screening Z12.11 Medical History Medical History Chronic cough Pulmonary infiltrate Lumbar back pain Pulmonary sarcoidosis Boil Surgical History Surgical History History of colonoscopy (~11/2023) Hyperplastic polyp/inflammatory polyp path sent Fracture, Open Treatment (10/01/12) IM NAILING R TIBIA SHAFT, ORIF FRACTURE MEDIAL MALLEOLUS Tobacco Smoking/Tobacco Use Status: Never Alcohol Alcohol Intake: current Alcohol intake frequency: a few times a week Alcohol type: beer and hard liquor Substance Use Substance use: Never Substance use type: does not use Vital Signs and Lab Results Vital Signs Most Recent Vital Signs in EMR: Most Recent Vital Signs Temp Pulse Resp BP Pulse Ox 37.4 C 74 18 125/89 95 05/12/24 13:53 05/12/24 13:53 05/12/24 13:53 05/12/24 13:53 05/12/24 13:53 Lab Results 05/12/24 09:39 05/12/24 09:39 Blood Type / Crossmatch: 2 Antibody Screen NEGATIVE 05/12/24 Complete Blood Count: 2 White Blood Count 13.10 10^3/uL (4.4-10.8) H 05/12/24 09:39 Red Blood Count 4.63 10^6/uL (4.36-5.78) 05/12/24 09:39 Hemoglobin 14.2 g/dL (13.5-17.5) 05/12/24 09:39 Hematocrit 42.1 % (40.0-50.0) 05/12/24 09:39 Platelet Count 266 10^3/uL (130-400) 05/12/24 09:39 Complete Metabolic Panel: 2 Sodium 142 mmol/L (136-145) 05/12/24 09:39 Potassium 3.4 mmol/L (3.5-5.1) L 05/12/24 09:39 Chloride 106 mmol/L (98-107) 05/12/24 09:39 Carbon Dioxide 26.0 mmol/L (21.0-32.0) 05/12/24 09:39 BUN 17 mg/dL (7-18) 05/12/24 09:39 Creatinine 0.9 mg/dL (0.70-1.30) 05/12/24 09:39 Est GFR (CKD-EPI 2020) 100.86 (mL/min/1.73m2) 05/12/24 09:39 Calcium 8.6 mg/dL (8.5-10.1) 05/12/24 09:39 Albumin 3.7 g/dL (3.4-5.0) 05/12/24 09:39 Glucose 144 mg/dL (74-106) H 05/12/24 09:39 Liver Function Panel: 2 Alanine Aminotransferase (ALT/SGPT) 46 U/L (16-63) 05/12/24 09: 39 Aspartate Amino Transf (AST/SGOT) 34 U/L (15-37) 05/12/24 09:39 Coagulation Panel: 2 INR International Normalized Ratio 1.1 (0.9-1.1) 05/12/24 09:3 9 Prothrombin Time 10.9 sec (9.1-11.1) 05/12/24 09:39 Cardiac Panel: 2 No Data to Display Arterial Blood Gas: 2 No Data to Display Venous Blood Gas: 2 No Data to Display Pancreas Panel: 2 No Data to Display Thyroid Panel: 2 No Data to Display Infectious Disease: 2 No Data to Display Blood Cultures: 2 No Data to Display Toxicology Panel: 2 No Data to Display Anesthesia Assessment and Plan Anesthesia History Personal History: No History of Anesthesia Complications Family History: No Family History of Anesthesia Complications Exercise Tolerance Exercise Tolerance: Metabolic Equivalents>4 Cardiac & Pulmonary Exam Cardiac Exam: Normal S1/S2 Heart Sounds Pulmonary Exam: Clear Bilateral Breath Sounds Implantable Cardiac Device Does patient have a Pacemaker or an ICD?: No Airway Exam Known Difficult Airway: No Mallampati Class: 3 Mouth Opening: Normal (> 3cm) Thyromental Distance: Greater than 3 cm Neck Range of Motion: Full ROM Neck Circumference: Normal Teeth Condition: Normal Dentition ASA Classification ASA Score: ASA 2 Emergency Case?: No NPO Status NPO Status: NPO Clears >2 hours, Solids >8 hours Anesthesia Plan Resuscitation Status: Full Code Anesthesia Technique: General Anesthesia Airway Planned: LMA Pain Management: Surgeon and patient request nerve block Monitors Used: Standard Monitors Preoperative Comments:: 53 yo male to OR for ORIF ankle fracture. Sig PMHx: sarcoidosis (no long on methotrexate, doing well, breathing feels good), back pain. never smoker EKG: sinus. PFTs: normal. Previous Anes: - [place], prop, ephedrine, natural airway, no issues. Discussed risks and benefits of regional anesthesia, would like to proceed.
--- NOTE | 2024-05-12 15:11 | PDOC.DSDIS_ITS ---
Discharge Plan Disposition Patient Disposition: Home Condition: Good Discharge Details Reason For Visit: Right ankle fracture dislocation Admit Date/Time: 05/12/24 11:16 Admit Provider: Charles Roberts Attending Provider: Charles Roberts Primary Care Provider: Chase Mehta Home Meds and New Rx's Prescriptions: New aspirin 81 mg tablet,delayed release (DR/EC) 81 mg PO BID 30 Days Qty: 60 0RF acetaminophen 500 mg tablet 1,000 mg PO Q8H PRN Qty: 90 0RF Rx Instructions: Take two tablets up to every 8 hours as needed for pain ibuprofen 600 mg tablet 600 mg PO TID PRN (Reason: pain) Qty: 60 0RF Continued folic acid 1 mg tablet 1 mg PO DAILY lysine 1,000 MG tablet 1,000 mg PO DAILY PRN Discharge Instructions Additional Instructions: Ankle ORIF Discharge Instructions Activity: You are NON WEIGHTBEARING. You should keep the leg elevated as much as possible. You may wiggle your toes and move your hip and knee. Dressings: You should keep your splint clean and dry. Do NOT get wet or dirty. If you have issues with your splint, please call the office at [phone] or the hospital after hours. Medications: - You should take Tylenol and Ibuprofen around the clock for baseline pain. - You have been prescribed a stronger narcotic for breakthrough pain. - You should take a Baby Aspirin (81mg) twice a day for blood clot prevention. Follow-up: 2 weeks Referrals: Charles Roberts MD [ [facility] STAFF PHYSICIAN] - Activity:: Activity as Tolerated Equipment/Supplies:: Walker Diet:: As Tolerated Discharge Orders Discharge Orders: Discharge Order (Routine); Ordered 05/12/24 Ordered By: Frances Mathur
[2024-05-12] MEDS: oxyCODONE 5 MG TAB PO ×2 (15:31→18:34)
--- NOTE | 2024-05-12 15:35 | W.ORTHOCONSU ---
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 It is unclear exactly what happened but the top portion of this tree fell while he had turned away, hitting him from behind. He feels that he hit it on his back primarily. It did not encounter his head. He did not lose consciousness but is not sure what happened. He had some immediate pain about the right ankle and over his back. There is obvious deformity about his right ankle. He does not tend. He was brought to the emergency department. He has a history of a previous tibial shaft fracture fixed with intramedullary álvaro years ago. He reports some pain over the midportion of his back. He denies any distal numbness or tingling. He denies any difficulty breathing. He has no chest pain. He denies any loss of consciousness, headache. All of his pain is primarily in the right ankle and in the mid back. Consults Consult date: 05/12/24 Requesting physician: Scotty Blank Consult Reason Hit be tree Assessment and Plan Assessment and plan (1) Closed fracture dislocation of right ankle: Status: Acute Assessment and plan: Bryce is a 54-year-old suffered a fracture dislocation about the right ankle. This needs to be fixed. While this is not an urgency to be fixed given the pain and the displacement which occurred it would be good to fix it sooner than later. I initially had plan to try taken to the operating room today, however, other emergent surgeries came and was postponed. Therefore, I will try to attempt fixation tomorrow. In the interim, he should be nonweightbearing on the right lower extremity. He should keep the leg elevated. We will do as needed ketorolac, acetaminophen, and oxycodone for pain control. He may return to regular diet today. N.p.o. after midnight tonight. Qualifiers: Encounter type: initial encounter Qualified Code(s): S82.891A - Other fracture of right lower leg, initial encounter for closed fracture (2) T12 compression fracture: Status: Acute Assessment and plan: Stable injury. Will attempt mobilization physical therapy tomorrow. May increase head of bed as tolerated. Recommend abdominal binder for mobilization. (3) Compression fracture of L2: Status: Acute (4) Back contusion: Status: Acute Review of Systems All systems reviewed & are unremarkable except as noted in HPI and below PFSH All Active Problems (Updated 05/12/24 @ 20:21 by Charles Roberts MD) Compression fracture of L2 (Acute) T12 compression fracture (Acute) Closed fracture dislocation of right ankle (Acute) Ankle fracture, right (Acute) Back pain (Acute) Back contusion (Acute) Accidentally struck by tree (Acute) Colon polyp (Acute) Screening for malignant neoplasm of colon performed (Acute) Sarcoidosis (Acute) Sensorineural hearing loss (SNHL) of both ears (Acute) Colon cancer screening (Acute) Medical History Chronic cough Pulmonary infiltrate Lumbar back pain Pulmonary sarcoidosis Boil Surgical History History of colonoscopy (~11/2023) Hyperplastic polyp/inflammatory polyp path sent Fracture, Open Treatment (10/01/12) IM NAILING R TIBIA SHAFT, ORIF FRACTURE MEDIAL MALLEOLUS Social History Smoking/Tobacco Use Status: Never Smoking risk assessment performed?: Yes Alcohol Intake: current Alcohol Intake frequency: a few times a week Alcohol type: beer and hard liquor Drug use: Never Substance use type: does not use Housing: house Do you feel safe at home: Yes Do you feel safe in your relationship?: Yes Exam Const General: cooperative, healthy appearing, uncomfortable, no acute distress and well developed Nutritional Appearance: average body habitus Orientation: alert, awake and oriented x3 HENMT Head: normal to inspection, normocephalic and atraumatic Neck Neck: normal visual inspection and full ROM Resp Effort & Inspection: normal respiratory effort Back/Spine/Pelvis Thoracic/Lumbar Spine: No thoracic and lumbar spine normal to inspection, paraspinal tenderness (Lower thoracic and upper lumbar spine), thoracic spinal tenderness (Lower lumbar spine), lumbar spinal tenderness (Upper lumbar spine), No straight leg raise positive and other (Superficial abrasions seen moving diagonally across the mid back, approxima) Neuro General: moves all extremities, normal light touch, pain and propioception and no focal motor deficits Motor: strength 5/5 throughout (Except for obvious limitations due to fracture on the right side) Sensory Exam: no sensory deficits noted Extrem Other: Right lower extremity is within a splint. Medial skin has been stretched from the injury but is intact. Sensation intact to light touch of the deep and superficial peroneal nerve and tibial nerve. He is able demonstrate active toe extension and flexion. Results Last Vital Signs Temp 37.4 C 05/12/24 13:53 Pulse 74 05/12/24 13:53 Resp 18 05/12/24 13:53 BP 125/89 05/12/24 13:53 Pulse Ox 95 05/12/24 13:53 Labs 05/12/24 09:39 05/12/24 09:39 Labs: Laboratory Results - last 24 hr 05/12/24 09:39 WBC 13.10 H RBC 4.63 Hgb 14.2 Hct 42.1 MCV 91 MCH 30.7 MCHC 33.7 RDW 13.2 Plt Count 266 MPV 9.8 Immature Gran % 2.2 Neutrophils % 83.5 Lymphocytes % 7.9 Monocytes % 5.2 Eosinophils % 0.7 Basophils % 0.5 Nucleated RBC % 0.0 Absolute Neutrophils 10.94 H Absolute Lymphocytes 1.03 L Absolute Monocytes 0.68 Absolute Eosinophils 0.09 Absolute Basophils 0.07 PT 10.9 INR 1.1 Sodium 142 Potassium 3.4 L Chloride 106 Carbon Dioxide 26.0 Anion Gap 10.0 BUN 17 Creatinine 0.9 Est GFR (CKD-EPI 2020) 100.86 Glucose 144 H Calcium 8.6 Total Bilirubin 0.54 AST 34 ALT 46 Alkaline Phosphatase 82 Total Protein 7.1 Albumin 3.7 ABO/Rh O Negative Antibody Screen NEGATIVE Imaging Imaging Studies: X-ray of the right ankle obtained in the emergency department demonstrates a fracture patient with an oblique distal fibula fracture transverse me malleolar fracture. The foot is rotated 90 degrees relation to the shaft of the tibia. Postreduction x-rays show a reduced tibiotalar joint with some slight lateral displacement. CT scan of the right ankle joint demonstrates a slightly comminuted fracture about the anterior aspect of the medial malleolus. Today oblique fracture about the distal fibula. There is a tibial nail and an independent screw seen within the tibia but without fracture of the tibia. There may be some slight comminution at the rim of the posterior malleolus but no true posterior malleolar fracture either. CT scan of the thoracolumbar spine shows a nondisplaced compression fracture of T12 and L2. This does not involve the middle or posterior columns. There is no retropulsion.
--- NOTE | 2024-05-12 16:15 | ED.GENADUL_ITS ---
Discharge Plan Disposition Patient Disposition: Admit to [facility] Condition: Stable Condition: Good Discharge Details Chief Complaint: Orthopedic Clinical Impression: Accidentally struck by tree, Back contusion, Ankle dislocation, Back pain, Ankle fracture, right Admit Date/Time: 05/12/24 11:16 Admit Provider: Charles Roberts Attending Provider: Charles Roberts Primary Care Provider: Chase Mehta ED Provider: Scotty Blank Discharge Instructions Activity:: Activity as Tolerated Equipment/Supplies:: Walker Diet:: As Tolerated [facility] General Date/Time Provider Initiated Documentation: 05/12/24 09:40 . Limitations to Documentation: no limitations . Information obtained by: patient . HPI Narrative: 54y M with PMH of sarcoidosis presents for evaluation of acute right leg trauma. onset just prior to arrival. patient was was working on a tree and the tree fell. The patient reports that it did not land on him or knocked him down but he fell down to his knees. He was wearing a helmet, but denies any head injury or loss of consciousness. He reports once he fell to his knees he had immediate knowledge that there was something wrong with his right leg and he did not attempt to stand up. He reports that his coworkers came over and laid him down on his left side. EMS transported the patient they reported a good pulse in his right foot. Related Data Home Medications Medication Instructions Recorded Confirmed lysine 1,000 mg tablet 1,000 mg PO DAILY PRN 08/21/17 05/12/24 folic acid 1 mg tablet 1 mg PO DAILY 09/12/23 05/12/24 acetaminophen 500 mg tablet 1,000 mg (2 x 500 mg) PO Q8H PRN 05/12/24 pain #90 tabs aspirin 81 mg tablet,delayed 81 mg PO BID 30 days #60 tabs 05/12/24 release ibuprofen 600 mg tablet 600 mg PO TID PRN pain #60 tabs 05/12/24 Previous Rx's Medication Instructions Recorded acetaminophen 500 mg tablet 1,000 mg (2 x 500 mg) PO Q8H PRN 05/12/24 pain #90 tabs aspirin 81 mg tablet,delayed 81 mg PO BID 30 days #60 tabs 05/12/24 release ibuprofen 600 mg tablet 600 mg PO TID PRN pain #60 tabs 05/12/24 Allergies Allergy/AdvReac Type Severity Reaction Status Date / Time No Known Allergies Allergy Unverified 05/12/24 09:39 General Stated Complaint: Orthopedic RICO: 3 Exam Narrative Exam Narrative: Review of Systems: All systems reviewed & are unremarkable except as noted in HPI and below Well-developed, + distressed NCAT No midline C-spine tenderness, step-off or deformity PERRL, normal conjunctiva RRR no murmur Unlabored respiratory effort no chest wall tenderness, no crepitus, clear lungs bilaterally Nondistended abdomen soft, nontender Pelvis stable Midline back without step-off or deformity, there is a large abrasion across the lower back, there is some paraspinal tenderness in the lumbar area, neurovascularly intact Right lower extremity with obvious ankle deformity dislocation, skin is intact, no open wounds, there is a 2+ DP pulse. Area marked No rashes or lesions. no focal neurologic deficits, moving all extremities appropriately, good strength and sensation throughout Appropriate mood and affect Course Vital Signs Vital signs: Vital Signs Temperature 36.5 C 05/12/24 09:34 Pulse 71 05/12/24 09:34 Respiratory Rate 18 05/12/24 09:34 Blood Pressure 119/70 05/12/24 09:34 Pulse Oximetry 95 05/12/24 09:34 Temperature 37.7 C H 05/12/24 15:35 Temperature Source Tympanic 05/12/24 15:35 Pulse 74 05/12/24 15:35 Pulse Rhythm Regular 05/12/24 13:53 Pulse 78 05/12/24 12:31 Respiratory Rate 16 05/12/24 15:35 Respiratory Effort Normal, Non-Labored 05/12/24 13:53 Respiratory Depth Normal 05/12/24 13:53 Respiratory Pattern Normal 05/12/24 13:53 Blood Pressure 125/90 05/12/24 15:35 Blood Pressure Mean 91 05/12/24 12:31 Pulse Oximetry 95 05/12/24 15:35 Respiratory End-tidal CO2 35 05/12/24 11:10 Oxygen Delivery Method Room Air 05/12/24 15:35 Oxygen Flow Rate 0 05/12/24 15:35 Pain Level 5 05/12/24 15:35 Lab/Test Results Lab/Test Results: Laboratory Tests Range/Units 05/12/24 09:39 WBC (4.4-10.8) 10^3/uL 13.10 H RBC (4.36-5.78) 10^6/uL 4.63 Hgb (13.5-17.5) g/dL 14.2 Hct (40.0-50.0) % 42.1 MCV (80-95) fL 91 MCH (27.0-33.0) pg 30.7 MCHC (32.0-36.0) % 33.7 RDW (11.8-14.1) % 13.2 Plt Count (130-400) 10^3/uL 266 MPV (8.0-11.0) fL 9.8 Immature Gran % % 2.2 Neutrophils % % 83.5 Lymphocytes % % 7.9 Monocytes % % 5.2 Eosinophils % % 0.7 Basophils % % 0.5 Nucleated RBC % (0.0-0.3) % 0.0 Absolute Neutrophils (1.2-6.7) 10^3/uL 10.94 H Absolute Lymphocytes (1.2-3.4) 10^3/uL 1.03 L Absolute Monocytes (0.1-0.8) 10^3/uL 0.68 Absolute Eosinophils (0.0-0.7) 10^3/uL 0.09 Absolute Basophils (0.0-0.2) 10^3/uL 0.07 PT (9.1-11.1) sec 10.9 INR (0.9-1.1) 1.1 Sodium (136-145) mmol/L 142 Potassium (3.5-5.1) mmol/L 3.4 L Chloride (98-107) mmol/L 106 Carbon Dioxide (21.0-32.0) mmol/L 26.0 Anion Gap (3-11) mmol/L 10.0 BUN (7-18) mg/dL 17 Creatinine (0.70-1.30) mg/dL 0.9 Est GFR (CKD-EPI 2020) (mL/min/1.73m2) 100.86 Glucose (74-106) mg/dL 144 H Calcium (8.5-10.1) mg/dL 8.6 Total Bilirubin (0.2-1.0) mg/dL 0.54 AST (15-37) U/L 34 ALT (16-63) U/L 46 Alkaline Phosphatase (46-116) U/L 82 Total Protein (6.4-8.2) g/dL 7.1 Albumin (3.4-5.0) g/dL 3.7 ABO/Rh O Negative Antibody Screen NEGATIVE Procedures Orthopedic Fracture Reduction Fracture #1: Time Out Performed: Yes Side: right Fracture Reduction Location: tibia and fibula Analgesia: procedural sedation Technique: direct manipulation Post Reduction X-rays Demonstrate: acceptable reduction Post-reduction neuro exam: intact Post-reduction vascular exam: intact Splint Applied: Yes Patient Tolerated Procedure: well and no complications Orthopedic Splinting/Casting Injury #1: Side: right Lower Extremity Injury Location: ankle Lower Extremity Immobilizer: posterior splint and stirrup splint Procedural Sedation Indication: fracture/dislocation reduction ASA Class: I Time of Last PO Intake: 07:00 Preparation: air sampling and monitoring applied, pulse oximeter, capnometry used, supplemental O2 applied, suction/airway equipment at bedside and IV secured IV Propofol dose (mg): 80 Patient Tolerated Procedure: well and no complications Complications: none Medical Decision Making Emergent evaluation of acute traumatic right ankle injury. Patient does have an obvious dislocation and deformity. He is neurovascularly intact with a pulse there. Initial plan for pain control and further traumatic workup, but will reduce the ankle as quickly as possible. X-ray imaging reviewed of the ankle, obvious dislocation and fractures noted. There is hardware in place. Discussed with orthopedics, they recommend reduction. Patient consented for conscious sedation. Conscious sedation performed without complication. Right ankle reduced with 2+ pulse, skin remained intact. Splint applied. Postreduction film reviewed, there is improved alignment. Discussed with orthopedic surgery who evaluated the patient in the emergency department and will admit the patient to their service for further operative management. A CT of the spine was obtained given his back pain, the patient was out of the emergency department prior to the imaging study being read. Orthopedics will follow-up and manage any additional findings. Medical Records Medical records reviewed: Yes I reviewed the patient's medical records. Lab Data Lab results reviewed: Yes I reviewed the patient's lab results. Quality:SDOH Health Related Social Needs: No Data to Display PFSH All Active Problems (Updated 05/12/24 @ 16:36 by Scotty Blank MD) Ankle fracture, right (Acute) Back pain (Acute) Ankle dislocation (Acute) Back contusion (Acute) Accidentally struck by tree (Acute) Colon polyp (Acute) Screening for malignant neoplasm of colon performed (Acute) Sarcoidosis (Acute) Sensorineural hearing loss (SNHL) of both ears (Acute) Colon cancer screening (Acute) Medical History Chronic cough Pulmonary infiltrate Lumbar back pain Pulmonary sarcoidosis Boil Surgical History History of colonoscopy (~11/2023) Hyperplastic polyp/inflammatory polyp path sent Fracture, Open Treatment (10/01/12) IM NAILING R TIBIA SHAFT, ORIF FRACTURE MEDIAL MALLEOLUS Social History Smoking/Tobacco Use Status: Never Smoking risk assessment performed?: Yes Alcohol Intake: current Alcohol Intake frequency: a few times a week Alcohol type: beer and hard liquor Drug use: Never Substance use type: does not use Housing: house Do you feel safe at home: Yes Do you feel safe in your relationship?: Yes PAWSS Have you Been Recently Intoxicated or Drunk Within the Last 30 days?: No Have you Ever Experienced Previous Episodes of Alcohol Withdrawal?: No Have you ever Experienced Withdrawal Seizures?: No Have you ever Experienced Delirium Tremens(DT)s?: No Have you ever undergone Alcohol Rehabilitation Treatment (i.e, inpt ot outpatient treatment programs)?: No Have you ever Experienced Blackouts?: No Have you ever Combined Alcohol with other Downers within the last 90 days?: No Have you ever Combined Alcohol with any other Substance of Abuse during the last 90 days?: No Positive Blood Alcohol level on Presentation? [PCS.BAL]: No Evidence of Increased Autonomic Activity (i.e. HR>120, tremor, sweating, agitation, nausea)?: No Result: 0
[2024-05-12] MEDS: Normal Saline Flush 10 ML SYR IVP (20:40)
[2024-05-12] MEDS: Ketorolac 15 MG/ML VIAL IVP (20:58)
[2024-05-12] MEDS: HYDROcodone 5/Acetaminophen 325 TAB PO (20:59)
[2024-05-13] VITALS (32 sets, daily range): BP systolic 106–130; BP diastolic 63–92; PULSE 70–91; RESP 12–22; TEMP 36.2–37.8; O2SAT 88–96; BMI 28.5
[2024-05-13] MEDS: ACETAMINOPHEN 1,000 MG/100 ML BTL 400 MG IVPB ×2 (01:12→10:14)
[2024-05-13] MEDS: HYDROmorphone 2 MG/ML SYR 1 MG IVP ×2 (01:13→02:32)
[2024-05-13] MEDS: Ketorolac 15 MG/ML VIAL IVP ×3 (02:32→19:43)
[2024-05-13] MEDS: Lactated Ringers 1,000 ML 80 ML IV (05:58)
--- NOTE | 2024-05-13 07:24 | PGE_ITS ---
Date of Service Date of service: 05/13/24 Time of Service: 07:26 Assessment and Plan Assessment and plan (1) Compression fracture of L2: Status: Acute (2) T12 compression fracture: Status: Acute Assessment and plan: Plan for mobilization with physical therapy. I do expect some pain with mobilization. Abdominal binder when out of the bed. This may be applied in the bed prior to mobilizing. It should be kept relatively tight around the abdomen to increase intra-abdominal pressure, causing some support to the lumbar and lower thoracic spine. Pain management before any mobilization. Nonweightbearing on the right lower extremity. (3) Closed fracture dislocation of right ankle: Status: Acute Assessment and plan: Currently reduced in the splint. Unfortunately surgery was postponed from yesterday due to other emergent cases. Plan to proceed today for open reduction internal fixation of the right ankle. I do have some concerns about the skin over the medial side of the ankle but either way this should be stabilized and fixed. I discussed the technical details of the case. I reviewed the risks include bleeding, infection, pain, stiffness, nonunion, nonunion, hardware prominence, hardware failure, damage to nerves and vessels, damage to muscle and tendons, need repeat procedure, blood clot, worsening arthritis. Despite these risk, he elects to proceed. Keep NPO. Maintenance fluids ordered. May have oral medications. Qualifiers: Encounter type: initial encounter Qualified Code(s): S82.891A - Other fracture of right lower leg, initial encounter for closed fracture Subjective Subjective Interval history since last seen: Bryce reports to be doing relatively well. He has been able to mobilize himself in the bed and raise the head of the bed with some pain but controlled. He did not receive any oral medications last night but did receive 2 doses of IV hydromorphone. The oxycodone and hydromorphone appear to be working to control some of the pain. He denies any new symptoms. No numbness or tingling. No chest pain or shortness of breath. Exam Narrative Exam Narrative: Resting in the hospital bed with the head of bed about 40 degrees. The right leg is elevated. No acute distress. Alert and orient x 3. Objective Last Vital Signs Temp 37.8 C H 05/13/24 07:21 Pulse 87 05/13/24 07:21 Resp 17 07/03/24 07:21 BP 112/82 05/13/24 07:21 Pulse Ox 91 L 05/13/24 07:21 Laboratory Results - last 24 hr 05/12/24 09:39 WBC 13.10 H RBC 4.63 Hgb 14.2 Hct 42.1 MCV 91 MCH 30.7 MCHC 33.7 RDW 13.2 Plt Count 266 MPV 9.8 Immature Gran % 2.2 Neutrophils % 83.5 Lymphocytes % 7.9 Monocytes % 5.2 Eosinophils % 0.7 Basophils % 0.5 Nucleated RBC % 0.0 Absolute Neutrophils 10.94 H Absolute Lymphocytes 1.03 L Absolute Monocytes 0.68 Absolute Eosinophils 0.09 Absolute Basophils 0.07 PT 10.9 INR 1.1 Sodium 142 Potassium 3.4 L Chloride 106 Carbon Dioxide 26.0 Anion Gap 10.0 BUN 17 Creatinine 0.9 Est GFR (CKD-EPI 2020) 100.86 Glucose 144 H Calcium 8.6 Total Bilirubin 0.54 AST 34 ALT 46 Alkaline Phosphatase 82 Total Protein 7.1 Albumin 3.7 ABO/Rh O Negative Antibody Screen NEGATIVE PAWSS Have you Been Recently Intoxicated or Drunk Within the Last 30 days?: No Have you Ever Experienced Previous Episodes of Alcohol Withdrawal?: No Have you ever Experienced Withdrawal Seizures?: No Have you ever Experienced Delirium Tremens(DT)s?: No Have you ever undergone Alcohol Rehabilitation Treatment (i.e, inpt ot outpatient treatment programs)?: No Have you ever Experienced Blackouts?: No Have you ever Combined Alcohol with other Downers within the last 90 days?: No Have you ever Combined Alcohol with any other Substance of Abuse during the last 90 days?: No Positive Blood Alcohol level on Presentation? [PCS.BAL]: No Evidence of Increased Autonomic Activity (i.e. HR>120, tremor, sweating, agitation, nausea)?: No Result: 0 Time Spent with Patient Time Spent with Patient: 25-34 minutes Time was spent: preparing to see the patient(eg.review tests), ordering medications,tests, procedures, referring, communicating with other health child day care provider, indepentently interpreting results and counseling the patient
[2024-05-13] MEDS: Normal Saline Flush 10 ML SYR IVP ×2 (08:10→19:42)
[2024-05-13] MEDS: Folic Acid 1 MG TAB PO (08:15)
[2024-05-13] MEDS: Lactated Ringers 1,000 ML 1000 ML IV (08:15)
[2024-05-13] MEDS: oxyCODONE 5 MG TAB PO ×3 (08:15→23:23)
--- NOTE | 2024-05-13 09:29 | INITIAL_ITS ---
Date of service: 05/13/24 Time of Service: 09:29 Care Management Initial Assmt Initial Assessment Reason for Hospitalization: right ankle fracture, compression fractures of T 12 and L2 Functional Status/Living Situation Patient Presentation: Bryce was in surgery when CM attempted to meet with him. His Myra was present however and was able to answer questions. She shared that Bryce is very independent and stoic and may need encouragement to accept medication to help control his pain. She stated that he is even reluctant to take Tylenol. In addition to the displaced ankle fracture, Brcye has compression fractures of T12 and L2 as well as a fractured rib. When he was injured, a tree fell directly onto his back. Myra reported that Dr. Roberts stated that the additional inj uries may slow his recovery due to [id number] discomfort. Bryce's length of stay is uncertain at this time. He did work with PT this morning and was able to log roll in bed, get into a sitting position and take a few steps with a walker. PT is recommending home health PT at discharge. Town of Residence: [place] Resides with: Spouse Significant Other/Family: Local [employer]: and 2 daughters who live in [place] Employment Status: Employed ([place] for [employer]) Instrumental Activities of Daily Living (ADLs): Independent Medications Medication Management: No Issues/Barriers identified Advance Directives Advance Directives: Do you have an Advance Directive: N 05/10/23 11:22 AD On File at [facility]: N 05/10/23 11:22 Date Asked 05/12/24 05/12/24 09:36 AD Date Reviewed 05/12/24 05/12/24 16:48 COLST On File at [facility] COLST Date Scanned Code Status Resuscitation Status Full Code Portal Pt does not currently have a portal and education provided: No Insurance Coverage/Financial Issues Insurance: [place] [employer] [facility] ACO Member: No Care Team Visit Care Team Role Provider Type Chase Mehta MD Primary Care Provider NON-[facility] STAFF PHYSICIAN InPatient Tera Dias Other Providers OTHER Scotty Blank MD Emergency Provider [facility] STAFF PHYSICIAN Charles Roberts MD Admit Provider [facility] STAFF PHYSICIAN Attending Provider Discharge Potential Discharge Needs: Surgical F/U Appt Anticipated Barriers to Discharge: None Identified Patient/Family Education Needs: Review discharge instructions, discuss Ask Me Three Transportation: Private vehicle Plan: Anticipate Bryce will be discharged home medically cleared. PT has recommended new home health PT. He will follow up with his orthopedic surgeon and plan of care and transport with family. CM will support Bryce and his discharge planning needs. PFSH All Active Problems (Updated 05/12/24 @ 20:21 by Charles Roberts MD) Compression fracture of L2 (Acute) T12 compression fracture (Acute) Closed fracture dislocation of right ankle (Acute) Ankle fracture, right (Acute) Back pain (Acute) Back contusion (Acute) Accidentally struck by tree (Acute) Colon polyp (Acute) Screening for malignant neoplasm of colon performed (Acute) Sarcoidosis (Acute) Sensorineural hearing loss (SNHL) of both ears (Acute) Colon cancer screening (Acute) Medical History Chronic cough Pulmonary infiltrate Lumbar back pain Pulmonary sarcoidosis Boil Surgical History History of colonoscopy (~11/2023) Hyperplastic polyp/inflammatory polyp path sent Fracture, Open Treatment (10/01/12) IM NAILING R TIBIA SHAFT, ORIF FRACTURE MEDIAL MALLEOLUS Social History Smoking/Tobacco Use Status: Never Smoking risk assessment performed?: Yes Alcohol Intake: current Alcohol Intake frequency: a few times a week Alcohol type: beer and hard liquor Drug use: Never Substance use type: does not use Housing: house Do you feel safe at home: Yes Do you feel safe in your relationship?: Yes SDOH(Care Management) Screening Will the Patient Participate in the Screening?: Declined to provide Do you worry about having a steady place to live?: choose not to answer In the past 12 months, have you had to go without electric, gas, oil or water in your home?: choose not to answer Have you or anyone in your house had to go without enough food to eat?: choose not to answer Has lack of transportation kept you from medical appointments or from doing things needed for daily living?: choose not to answer Has anyone in your support network made you feel unsafe for any reason?: choose not to answer
--- NOTE | 2024-05-13 09:54 | IN_ITS ---
PT Notes Visit Reasons: Right ankle fracture dislocation Inpatient Physical Therapy Evaluation Date: 05/13/24 Referring Doctor: Dr. Roberts PT Orders: PT CONSULT: Awaiting RLE surgery with T12, L2 Compression fx. Work on mobilization, NWB RLE Precautions: NWB RLE Patient Profile/Admitting Diagnosis: Patient admitted 05/12/24 after being struck by tree while at work. Admitted for management of compression fx T12, L2, and right ankle fx and dislocation, awaiting surgical fixation later this morning. Social History/Home Situation: Lives in private home with . 3 [address], single rail. Typically sleeps on second floor, but bedroom and bathroom available on the first floor. Works for the [employer] as [employer]. is present and supportive during PT session. Equipment Owned/DME: Was provided with abdominal binder prior to PT session Subjective: Bryce states that he is feeling good. He's very anxious to return home. States that his pain is well managed, and he had pain meds about an hour before PT session. Reports 0/10 pain if he's not moving. He'd like to try walking. Objective: General Observation: Resting in bed with RLE elevated. DEZ wrap to right foot and ankle. IV in RUE. Mental Status: A&Ox3. Very pleasant and cooperative. Pain: no pain at rest. Manageable with movement. ROM: Right Upper Extremity: WFL for shoulder, elbows, wrists bilat Left Upper Extremity: WFL for shoulder, elbows, wrists bilat Right Lower Extremity: Hip and knee ROM WFL. Able to wiggle toes. Right ankle immobilized. Left Lower Extremity: Hip, knee and ankle ROM WFL. Strength: Right Upper Extremity: WFL Left Upper Extremity: WFL Right Lower Extremity: Able to perform LAQ, SLR without difficulty Left Lower Extremity: WFL Bed Mobility/Transfers: supine-sit: via log roll with abdominal binder, max cues and SBA sit-supine: via log roll with abdominal binder, max cues and mod A to bilat LEs. educated on assistance to LEs sit-stand: CGA, cues for technique stand-sit: CGA, cues for technique Gait: Able to take 3 steps with FWW, abdominal binder in place, NWB RLE. Balance: Static Sitting: normal Dynamic Sitting: good Static Standing: fair Dynamic Standing: fair Special Tests: Mobility Limitations Standardized Measure [facility] AM-PAC 6 clicks Basic Mobility Inpatient Short Form: Raw Score: 17 CMS Score: 51% impairment Informed Consent/Education: Patient instructed in purpose of PT consult and plan of care. Treatment: Initial Evaluation: [id number] Therapeutic Activities: [id number] Instructed in application of abdominal binder: apply in supine position, instructed in application Instructed in log roll technique and supine<->sit with avoidance of trunk rotation Instructed in transfer techniques and ambulation with NWB RLE, maintenance of back-protective positions Assessment: Patient is a 54 year old male referred to physical therapy services for mobilization following trauma, with compression fx T12, L2, and right ankle fx and dislocation. He is currently awaiting surgical fixation of right ankle fx. Patient presents with clinical signs and symptoms consistent with diagnosis, as demonstrated by the following impairment level findings: 1. pain 2. NWB RLE 3. acute compression fx of T12, L2 Impairments are contributing to the following functional limitations: 1. increased time to perform bed mobility with modified technique 2. unable to tolerate community distance ambulation 3. unable to manage stairs 4. unable to independently transfer into bed Patient is assessed as a Low [id number] complexity based on the following: History: Active and independent 54 year old male presenting 1 day s/p trauma in the work place resulting in compression fractures of T12 and L2, as well as right ankle fx and dislocation. No significant complicating factors. Examination: as above Presentation: evolving Decision Making: low complexity Goals: Goals X1 week 1. Supine-Sit : supervision 2. Sit-Supine : supervision 3. Sit-Stand : supervision with FWW and abdominal binder 4. Stand-Sit : supervision with FWW and abdominal binder 5. Bed-Chair : supervision with FWW and abdominal binder 6. Chair-Bed : supervision with FWW and abdominal binder 7. Gait: ambulate 25' with supervision with FWW and abdominal binder 8. Stairs: manage 3 steps with bilat UE support and min A x 1 Plan of Care/Treatment Plan: 1-2x/day, 7 days/week x 1 week. Plan of care has been reviewed with the TRAFFIC CONTROL OFFICER providing the service under Physical Therapy direction. Initiate Physical Therapy intervention for strengthening, bed mobility, transfers, gait, stairs, balance training, use of assistive device. Will continue patient education in protective positioning for back and NWB RLE. DISCHARGE RECOMMENDATIONS: Home with services (would benefit from HH PT consult for patient education to maximize functional mobility in the home) Anticipate need for FWW at time of discharge to maximize stability as patient ambulates with modified weight bearing TREATMENT CODE/TIME: [id number] ([id number], [id number]) Please sign an return this page within 30 days if you agree with the above POC. Thank you! Physician Signature Date [facility] PFS All Active Problems (Updated 05/12/24 @ 20:21 by Charles Roberts MD) Compression fracture of L2 (Acute) T12 compression fracture (Acute) Closed fracture dislocation of right ankle (Acute) Ankle fracture, right (Acute) Back pain (Acute) Back contusion (Acute) Accidentally struck by tree (Acute) Colon polyp (Acute) Screening for malignant neoplasm of colon performed (Acute) Sarcoidosis (Acute) Sensorineural hearing loss (SNHL) of both ears (Acute) Colon cancer screening (Acute) Medical History Chronic cough Pulmonary infiltrate Lumbar back pain Pulmonary sarcoidosis Boil Surgical History History of colonoscopy (~11/2023) Hyperplastic polyp/inflammatory polyp path sent Fracture, Open Treatment (10/01/12) IM NAILING R TIBIA SHAFT, ORIF FRACTURE MEDIAL MALLEOLUS
--- NOTE | 2024-05-13 12:54 | W.ANESNERVE ---
Nerve Block Single Injection Procedure Date and Time Date Performed: 05/13/24 Procedure Start: 12:45 Location Where Procedure Performed Procedure Location: PACU Reason Performed: Other Requesting Provider: Charles Roberts Timeout Performed Timeout Performed: Yes Monitoring Used ECG, Blood Pressure and SpO2 Sterility Sterility: Hand Hygiene, Surgical Cap, Surgical Mask, Sterile Gloves and Chlorhexidine Sedation Given During Procedure Sedation Given (Indicate Dose Given): No Sedation given Patient Mental Status Patient Mental Status: Awake Nerve Block 1st Nerve Block: Laterality: Right Block Type: Popliteal Sciatic Ultrasound Image Saved?: Yes Needle / Catheter Used: 100mm SonoPlex II Local Anesthetic Bolus (Indicate Dose Given): Lidocaine used for local infiltration of skin and Bupivacaine 0.375% Dose:: 20 mcg Additives (Indicate Dose Given): Epinephrine to make 1:400,000 (2.5mcg/ml) Dose:: 50 mcg Ultrasound: Sterile probe cover and gel used Nerve Stimulator: Supplement to Ultrasound use and No twitch or parasthesia noted < 0.5 mA Paresthesia: None Procedure Tolerated: No Complications Procedure Outcome: Successful Performed By: Seb Miller 2nd Nerve Block: Laterality: Right Block Type: Adductor Canal Ultrasound Image Saved?: Yes Needle / Catheter Used: 100mm SonoPlex II Local Anesthetic Bolus (Indicate Dose Given): Lidocaine used for local infiltration of skin and Bupivacaine 0.375% Dose:: 10 mL Additives (Indicate Dose Given): Epinephrine to make 1:400,000 (2.5mcg/ml) Dose:: 25 mcg Ultrasound: Sterile probe cover and gel used Nerve Stimulator: Supplement to Ultrasound use and No twitch or parasthesia noted < 0.5 mA Paresthesia: None Procedure Tolerated: No Complications Procedure Outcome: Successful Performed By: Seb Miller
--- NOTE | 2024-05-13 13:04 | PDOC.DSDIS_ITS ---
Date of service: 05/13/24 Time of Service: 13:04 Discharge Plan Disposition Patient Disposition: Home Condition: Good Discharge Details Reason For Visit: Right ankle fracture dislocation Admit Date/Time: 05/12/24 11:16 Admit Provider: Charles Roberts Attending Provider: Charles Roberts Primary Care Provider: Chase Mehta Home Meds and New Rx's Prescriptions: New aspirin 81 mg tablet,delayed release (DR/EC) 81 mg PO BID 30 Days Qty: 60 0RF acetaminophen 500 mg tablet 1,000 mg PO Q8H PRN Qty: 90 0RF Rx Instructions: Take two tablets up to every 8 hours as needed for pain ibuprofen 600 mg tablet 600 mg PO TID PRN (Reason: pain) Qty: 60 0RF Continued folic acid 1 mg tablet 1 mg PO DAILY lysine 1,000 MG tablet 1,000 mg PO DAILY PRN Discharge Instructions Additional Instructions: Ankle ORIF Discharge Instructions Activity: You are NON WEIGHTBEARING. You should keep the leg elevated as much as possible. You may wiggle your toes and move your hip and knee. Dressings: You should keep your splint clean and dry. Do NOT get wet or dirty. If you have issues with your splint, please call the office at [phone] or the hospital after hours. Medications: - You should take Tylenol and Ibuprofen around the clock for baseline pain. - You have been prescribed a stronger narcotic for breakthrough pain. - You should take a Baby Aspirin (81mg) twice a day for blood clot prevention. Follow-up: 2 weeks Referrals: Charles Roberts MD [ [facility] STAFF PHYSICIAN] - Activity:: Activity as Tolerated Equipment/Supplies:: Walker Diet:: As Tolerated Discharge Orders Discharge Orders: Discharge Order (Routine); Ordered 05/13/24 Ordered By: Jessee Salinas DS: Diagnosis Discharge Diagnosis (1) Compression fracture of L2: Status: Acute (2) T12 compression fracture: Status: Acute (3) Closed fracture dislocation of right ankle: Status: Acute
[2024-05-13] MEDS: ceFAZolin 2 GM/50 ML BAG 100 GM (13:15)
[2024-05-13] MEDS: Tranexamic Acid 1,000 MG/10 ML VIAL 1000 MG (13:15)
[2024-05-13] MEDS: Bupivacaine 0.25% Pres-Free W/EPI 30 ML VIAL (13:49)
--- NOTE | 2024-05-13 14:39 | DI.RAD_ITS ---
Exam(s) XR ANKLE RT 2V EXAM: XR ANKLE RT 2V CLINICAL HISTORY: RIGHT ANKLE FRACTURE. TECHNIQUE: 2D digital imaging was performed. COMPARISON: CR XR ANKLE RT COMPLETE from 05/12/2024 FINDINGS: Intraoperative fluoroscopy provided during right ankle ORIF. See procedure report for details. Total fluoroscopy time 23.4 seconds IMPRESSION: Radiation exposure index/cumulative dose:Emma,r= 0.4284 mGy DATA REPOSITORY: RADIATION DOSE DELIVERED:
--- NOTE | 2024-05-13 14:52 | ROE_ITS ---
Date of service: 05/13/24 Time of Service: 13:30 Operative Note Operative Note DATE OF PROCEDURE: 05/13/24 PRE-OP DIAGNOSIS: Right Ankle Fracture Dislocation POST-OP DIAGNOSIS: same PROCEDURE: Open Reduction and Internal Fixation of RIGHT Ankle - Lateral and Medial Malleolus SURGEON: Charles Roberts AUTOMOTIVE ALIGNMENT SPECIALIST: Jessee Salinas ANESTHESIA TYPE: General LMA/ETT and Primary Nerve Block Refer to Anesthesia Record ESTIMATED BLOOD LOSS: 50 PATHOLOGY: none sent TOURNIQUET TIME: 0 COMPLICATIONS: None Patient was transported to: PACU Patient's condition: stable Indications: Bryce who presented to the Emergency Department after he was hit by a tree and injuring his right ankle. X-rays confirmed the diagnosis of a right ankle fracture-dislocation. The dislocation was reduced in the ED. I reviewed the possible treatment options and given the fracture, I recommended operative fixation. I discussed the technical details of the surgery. I reviewed the risks such as bleeding, infection, pain, stiffness, malunion, nonunion, hardware prominence, hardware faiilure, malrotation, damage to nerves and vessels, blood clot. Despite these risks, he agreed to proceed. Findings: There was a fracture of the fibula and medial malleolus which was reduced with traction and internal rotation and direct manipulation. The fibula was secured with a lag screw and neutrualization plate. A single screw was used in the medial malleolus. Procedure Description: Bryce was greeted in the preoperative area. Consent was previously reviewed and signed. Once in the operating room, anesthesia was administered. The patient was transferred to the operating table in the supine position. He was positioned in the supine position with the operative side placed onto a bone foam ramp. All bony prominences were well padded. Arms were placed out to the side, padded, and secured. A single dose of TXA, 1 gram, was then administered IV. Prophylactic antibiotics, Cefazolin 2 grams, was given for prophylactic antibiotics. A timeout was performed for safe surgery. The right leg was prepped with Chloraprep. The leg was draped with a split and extremity drape. The medial skin was intact although is some areas of trauma but with no defect. The ankle is also grossly unstable. Starting with a medial curvilinear incision, expose the medial fracture. This was biased anteriorly where the fracture was located. This was taken down through the skin. Saphenous vein was protected. The fracture was easily identifiable and was displaced quite significantly anteriorly and laterally. The posterior tibial tendon was also quite prominent under the medial malleolus. The joint was opened up and thoroughly irrigated. There is no loose fragments seen. There is no significant cartilage damage. The ankle was then reduced with traction internal rotation keeping the talus reduced. Attention was then turned to the lateral side. A longitudinal incision was made overlying the fibula. This was taken off sharply to skin. There is significant soft tissue disruption and hematoma in this area. This was dissected down to the fibula. The fracture was these identified. The fracture was distracted and early hematoma was removed for better visualization. A mabry elevator was utilized to evaluate this oblique fracture. With the right manipulation of the fracture and manipulation of the foot I was able to reduce it nearly anatomic. It was held with a clamp. A lag screw was then placed utilizing a 3.5 drill proximally and 2.5 mm drill distally. A lag screw was then placed perpendicular to the fracture line with excellent fixation. A one third tubular plate was then selected on the back table and contoured for the distal fibula. It was placed on the fibula and then secured there with a locking screw distally and a nonlocking screw proximally. X-ray was obtained to demonstrate appropriate position of the plate and reduction of the fracture. Cortical screws were placed proximally and additional locking screws placed distally. Unfortunately, with the location of the fracture I was unable to place a third locking screw distally. Attention was then turned back to the medial side. The anterior fracture fragment was grossly unstable and therefore I decided to place a single screw for this. I was able to reduce it with some effort utilizing a K wire in the fracture as a joystick as well as a dental pick. With this reduced I was able to drive the K wire through the tibia. This seemed to produce anatomical reduction. I then continued with drilling the fragment and then placing a screw . The screw was able to hold the fracture well and additional K wire was kept in place to keep from rotating. Once this was fully seated the K wire was removed. The ankle was taken to range of motion. There is no joint displacement. Stress view also did not show any widening of the joint therefore no syndesmotic fixation was obtained. Both wounds were then thoroughly irrigated. It was noticed during the irrigation that some of the fracture fragment medially had fragmented around the screw head. However, the piece seem to still be stable and therefore this was left in place. I did inject the deep tissues with 0.25% bupivacaine. I used a #2-0 Vicryl to reapproximate deltoid and periosteum over this fracture fragment to encompass the fracture fragment pieces around the screw head. This was done in multiple positions closing the soft tissues over that fracture line. On the medial wound, deep tissues were reapproximated with #3-0 Vicryl and the skin was closed with a #4-0 nylon. For the lateral wound, the deep fascia and tissues was closed overlying the plate with a #0 Vicryl. The deep subcutaneous tissue was closed with a #2-0 Vicryl. The skin was closed with a running i nterrupted?mattress suture with a 4-0 nylon. No tourniquet was used. There is minimal bleeding. At the end the case all counts were correct. The wounds were dressed with Xeroform, 4 x 4, ABD, Webril, short leg splint. He will remain nonweightbearing. He will continue with physical therapy.
--- NOTE | 2024-05-13 15:39 | W.ANESPOSTOP ---
Postoperative Evaluation Date, Time and Location Date Performed: 05/13/24 Time Performed: 15:39 Patient Location: PACU Vital Signs Most Recent Imported Vital Signs: Most Recent Vital Signs Temp Pulse Resp BP Pulse Ox 36.5 C 77 19 126/76 92 05/13/24 15:20 05/13/24 15:30 05/13/24 15:31 05/13/24 15:30 05/13/24 15:31 Pain Score Most Recent Pain Score: Most Recent Pain Score Pain Level [Right Ankle] 7 05/12/24 20:40 Pain Level [Back] 4 05/13/24 08:10 Pain Level [Right Lower Ankle] 2 05/12/24 12:34 Pain Level 0 05/13/24 11:06 Assessment Mental Status: Awake (Alert & Oriented to Patient Baseline) Airway and Respiratory Function: Patent airway with normal (patient baseline) respiratory exam (continuous pulse ox ordered for floor. strongly encoraged to cough/deep breath and use IS frequently. ) Cardiovascular Function: Hemodynamically Stable Hydration Status: Adequately Hydrated Nausea & Vomiting: No Nausea or Vomiting Pain: Pt. Denies Any Pain Peripheral Nerve Block: Patient did not receive a nerve block
--- NOTE | 2024-05-13 16:04 | CHAPLAIN ---
Bryce was resting in bed when I visited. He had just received Reiki and was relaxed. His , Myra, was receiving Reiki. According to ED notes Bryce was injured while working taking down trees yesterday. I explained my role and offered support. I will visit visit again.
[2024-05-13] MEDS: ceFAZolin 1 GM/50 ML BAG IVPB (18:29)
[2024-05-13] MEDS: Methocarbamol 750 MG TAB PO (19:41)
[2024-05-13] MEDS: Acetaminophen 325 MG TAB 650 MG PO (19:42)
[2024-05-14] MEDS: Ketorolac 15 MG/ML VIAL IVP ×3 (01:48→14:12)
[2024-05-14] MEDS: Acetaminophen 325 MG TAB 650 MG PO (01:48)
[2024-05-14] MEDS: ceFAZolin 1 GM/50 ML BAG IVPB ×2 (02:15→09:12)
[2024-05-14 06:25] VITALS: BP 130/93; PULSE 70; RESP 18; TEMP 37; O2SAT 94
[2024-05-14 07:01] LABS: HCT 37.3 % (40.0-50.0); HGB 12.3 g/dL (13.5-17.5); MCH 30.3 pg (27.0-33.0); MCV 92 fL (80-95); MPV 9.9 fL (8.0-11.0); Platelet Count 180 10^3/uL (130-400); RBC 4.06 10^6/uL (4.36-5.78); RDW 13.2 % (11.8-14.1); RDW-SD 45.2 fL; WBC 12.85 10^3/uL (4.4-10.8)
[2024-05-14 07:28] LABS: Anion Gap 7.6 mmol/L (3-11); BUN 14 mg/dL (7-18); CO2 26.4 mmol/L (21.0-32.0); CREATININE 0.9 mg/dL (0.70-1.30); Calcium 8.5 mg/dL (8.5-10.1); Chloride 106 mmol/L (98-107); Estimated GFR 100.86 (mL/min/1.73m2); Glucose 141 mg/dL (74-106); Magnesium 2.1 mg/dL (1.8-2.4); Potassium 4.3 mmol/L (3.5-5.1); Sodium 140 mmol/L (136-145)
[2024-05-14] MEDS: Methocarbamol 750 MG TAB PO ×2 (09:11→13:18)
[2024-05-14] MEDS: Folic Acid 1 MG TAB PO (09:11)
[2024-05-14] MEDS: Enoxaparin 40 MG/0.4 ML SYR SC (09:12)
[2024-05-14] MEDS: Normal Saline Flush 10 ML SYR IVP ×2 (09:13→14:11)
--- NOTE | 2024-05-14 10:19 | W.PM.PROGNOT ---
Date of Service Date of service: 05/14/24 Time of Service: 10:00 Assessment and Plan Assessment and plan (1) Compression fracture of L2: Status: Acute (2) T12 compression fracture: Status: Acute Assessment and plan: Continue mobilization with physical therapy. I do expect some pain with mobilization. Abdominal binder when out of the bed. This may be applied in the bed prior to mobilizing. It should be kept relatively tight around the abdomen to increase intra-abdominal pressure, causing some support to the lumbar and lower thoracic spine. Pain management before any mobilization. Touchdown weightbearing on the right lower extremity. (3) Closed fracture dislocation of right ankle: Status: Acute Assessment and plan: Doing well status post open reduction internal fixation of right ankle fracture dislocation. Block is still actively working. Continue immobilization physical therapy, touchdown weightbearing right lower extremity. Lovenox for DVT prophylaxis during hospital with aspirin 81 mg twice daily on discharge. Elevate when not mobilizing. Qualifiers: Encounter type: initial encounter Qualified Code(s): S82.891A - Other fracture of right lower leg, initial encounter for closed fracture Subjective Subjective Interval history since last seen: Bryce had some pain in the back last night but this responded very well to pain medications and he had a good night sleep. He still has not motion of his toes and no sensation distally in the foot from the block. He has been using the IS and taking bigger breaths and coughs. No other acute concerns. Exam Narrative Exam Narrative: Sitting up in the bed. No acute distress. Alert and orient x 3. No longer requiring oxygen. Breathing comfortably without audible wheezing or distress or work of breathing. Right lower extremity is in a splint. There is no active motion of the toes. No sensation in toes, from block. Dressings clean dry and intact. Objective Last Vital Signs Temp 37 C 05/14/24 06:25 Pulse 70 05/14/24 06:25 Resp 18 05/14/24 06:25 BP 130/93 H 05/14/24 06:25 Pulse Ox 94 05/14/24 06:25 Laboratory Results - last 24 hr 05/14/24 06:14 WBC 12.85 H RBC 4.06 L Hgb 12.3 L Hct 37.3 L MCV 92 MCH 30.3 MCHC 33.0 RDW 13.2 Plt Count 180 MPV 9.9 Sodium 140 Potassium 4.3 Chloride 106 Carbon Dioxide 26.4 Anion Gap 7.6 BUN 14 Creatinine 0.9 Est GFR (CKD-EPI 2020) 100.86 Glucose 141 H Calcium 8.5 Magnesium 2.1 PAWSS Have you Been Recently Intoxicated or Drunk Within the Last 30 days?: No Have you Ever Experienced Previous Episodes of Alcohol Withdrawal?: No Have you ever Experienced Withdrawal Seizures?: No Have you ever Experienced Delirium Tremens(DT)s?: No Have you ever undergone Alcohol Rehabilitation Treatment (i.e, inpt ot outpatient treatment programs)?: No Have you ever Experienced Blackouts?: No Have you ever Combined Alcohol with other Downers within the last 90 days?: No Have you ever Combined Alcohol with any other Substance of Abuse during the last 90 days?: No Positive Blood Alcohol level on Presentation? [PCS.BAL]: No Evidence of Increased Autonomic Activity (i.e. HR>120, tremor, sweating, agitation, nausea)?: No Result: 0 Time Spent with Patient Time Spent with Patient: <25 minutes Time was spent: preparing to see the patient(eg.review tests), obtaining and/or reviewing separately otained hiistory, indepentently interpreting results and counseling the patient
--- NOTE | 2024-05-14 10:21 | W.PM.DS.N ---
Date of service: 05/14/24 Time of Service: 10:05 DS: Diagnosis Discharge Diagnosis (1) Compression fracture of L2: Status: Acute (2) T12 compression fracture: Status: Acute (3) Closed fracture dislocation of right ankle: Status: Acute Discharge Plan Disposition Patient Disposition: Home W/Home Health Services Condition: Good Discharge Details Reason For Visit: Right ankle fracture dislocation Admit Date/Time: 05/12/24 11:16 Admit Provider: Charles Roberts Attending Provider: Charles Roberts Primary Care Provider: Chase Mehta Hospital Course Hospital Course: Patient was admitted to the medical/surgical floor from the Emergency Department for management of multiple compression fractures and a right ankle fracture-dislocation. On HD#2 he was taken to the operating room for open reduction and internal fixation of the right ankle. A block was utilized for intra- and post-op pain control. The surgery was tolerated well without any notable medical, surgical, or anesthetic complications. Physical therapy was utilized early to work with mobilization given the multiple spine fractures and the right ankle. He was able to make good gains with physical therapy. He was voiding spontaneously. Vitals were stable with oxygenation improving with IS use. Physical therapy worked with the patient and was cleared for discharge home. No acute medical issues. Pain was controlled on oral regimen. Home Meds and New Rx's Prescriptions: New aspirin 81 mg tablet,delayed release (DR/EC) 81 mg PO BID 30 Days Qty: 60 0RF acetaminophen 500 mg tablet 1,000 mg PO Q8H PRN Qty: 90 0RF Rx Instructions: Take two tablets up to every 8 hours as needed for pain ibuprofen 600 mg tablet 600 mg PO TID PRN (Reason: pain) Qty: 60 0RF oxycodone 5 mg tablet 5 mg PO Q4H PRNQty: 18 0RF methocarbamol 750 mg tablet 750 mg PO TID PRNQty: 30 0RF Continued folic acid 1 mg tablet 1 mg PO DAILY lysine 1,000 MG tablet 1,000 mg PO DAILY PRN Discharge Instructions Additional Instructions: Ankle ORIF Discharge Instructions Activity: You are NON WEIGHTBEARING but you may place the foot on the ground for balance while ambulating. You should keep the leg elevated as much as possible. You may wiggle your toes and move your hip and knee. When mobilizing you may wear the abdominal binder. This should be applied snuggly when ambulating or mobilizing. It does not need to be worn when you are resting in the bed or chair (as long as back is supported). Dressings: You should keep your splint clean and dry. Do NOT get wet or dirty. If you have issues with your splint, please call the office at [phone] or the hospital after hours. Medications: - You should take Tylenol and Ibuprofen around the clock for baseline pain. - You have been prescribed Oxycodone for breakthrough pain. - You also have a muscle relaxer prescribed. I would take this three times a day for the next 2-3 days and then use as needed. - You should take a Baby Aspirin (81mg) twice a day for blood clot prevention. Follow-up: 2 weeks 1. Encounter Date and Reason I certify that Bryce Lake was seen by Charles Roberts MD on 05/14/24 and that I had a [id number] encounter with this patient that meets the physician face to face encounter requirements. 2. Clinical Findings Supporting Skilled Need and Homebound Status I certify that home health services are medically necessary, include either intermittent shelter and/or physical/speech therapy, and that this patient is homebound in that absences from the home require considerable and taxing effort and are infrequent or of short duration, or are attributable to the need to receive medical care. [X] (a) Attached documentation from encounter provides clinical findings supporting skilled need and homebound status (including what assistance patient requires to leave the home). The encounter with the patient was in whole, or in part, for the following medical condition, which is the primary reason for home health care: Right ankle fracture dislocation Fci: Physical Therapy: Bryce would benefit from home PT and OT due to multiple spine compression fractures and a right ankle fracture-dislocation s/p ORIF which has resulted in limited ambulatory capacity, weakness, and functional limitations. He is TDWB on the RLE and has no restrictions with his back but should avoid turning/twisting/bending and utilize the abdominal binder when mobilizing. Speech Therapy: Homebound: Bryce is unable to leave his home unassisted due to ambulatory dysfunction, weight-bearing restrictions, and weakness. 3. Certification and Authentication I certify that I composed the above information based on my clinical judgement relating to this patient's medical condition and, if applicable, clinical findings communicated to me by the NPP or inpatient physician who performed the Home Health Referral. All further orders will be obtained through Dr. Roberts Stand Alone Forms: Nursing Discharge Form Referrals: Charles Roberts MD [ [facility] STAFF PHYSICIAN] - Activity:: Activity as Tolerated Equipment/Supplies:: Walker Diet:: As Tolerated Discharge Orders Discharge Orders: Discharge Order (Routine); Ordered 05/14/24 Ordered By: Charles Roberts DS: Summary Time Spent with Patient providing and/or coordinating discharge services: Less than 30 minutes Status at Discharge Functional status at discharge: uses cane/walker Overall status at discharge: patient is progressing back to baseline Mental Status: mental status grossly normal Speech and Movement: speech and movement normal Mood: congruent mood Affect: normal affect Quality:SDOH Health Related Social Needs: No Data to Display Exam Psych Mental Status: mental status grossly normal Speech and Movement: speech and movement normal Mood: congruent mood Affect: normal affect DS: Data Vitals/I&O Vitals and I&O: Vital Signs Temperature 37 C 05/14/24 06:25 Temperature Source Temporal Artery Scan 05/14/24 06:25 Pulse 70 05/14/24 06:25 Pulse Rhythm Regular 05/14/24 02:06 Pulse 76 05/13/24 15:51 Respiratory Rate 18 05/14/24 06:25 Respiratory Effort Normal 05/14/24 02:06 Respiratory Depth Normal 05/14/24 02:06 Respiratory Pattern Normal 05/14/24 02:06 Blood Pressure 130/93 H 05/14/24 06:25 Blood Pressure Mean 96 05/13/24 15:50 Pulse Oximetry 94 05/14/24 06:25 Respiratory End-tidal CO2 32 05/13/24 15:51 Oxygen Delivery Method Room Air 05/14/24 06:25 Oxygen Flow Rate 0 05/14/24 06:25 Pain Level 0 05/14/24 06:25 Intake & Output 05/13/24 05/13/24 05/14/24 11:59 23:59 11:59 Intake Total 1362.667 / 2749.334 1386.667 / 2749.334 1050 / 1050 Output Total 400 / 1375 975 / 1375 1675 / 1675 Balance 962.667 / 1374.334 411.667 / 1374.334 -625 / -625 Intake: IV 1362.667 / 2199.334 836.667 / 2199.334 100 / 100 Oral 550 / 550 950 / 950 Output: Urine 400 / 1325 925 / 1325 1675 / 1675 Estimated Blood Loss 50 / 50 Other: Urine Color Dark Julia Yellow Straw Urine Appearance Clear Clear Clear Urine Odor Normal Comment urinal Emesis Description None Voiding Methods Urinal Urinal Data Completed and Pending Labs on day of discharge: Labs from last 24 hours 05/14/24 06:14 WBC 12.85 H RBC 4.06 L Hgb 12.3 L Hct 37.3 L MCV 92 MCH 30.3 MCHC 33.0 RDW 13.2 Plt Count 180 MPV 9.9 Sodium 140 Potassium 4.3 Chloride 106 Carbon Dioxide 26.4 Anion Gap 7.6 BUN 14 Creatinine 0.9 Est GFR (CKD-EPI 2020) 100.86 Glucose 141 H Calcium 8.5 Magnesium 2.1 PFSH All Active Problems (Updated 05/12/24 @ 20:21 by Charles Roberts MD) Compression fracture of L2 (Acute) T12 compression fracture (Acute) Closed fracture dislocation of right ankle (Acute) Ankle fracture, right (Acute) Back pain (Acute) Back contusion (Acute) Accidentally struck by tree (Acute) Colon polyp (Acute) Screening for malignant neoplasm of colon performed (Acute) Sarcoidosis (Acute) Sensorineural hearing loss (SNHL) of both ears (Acute) Colon cancer screening (Acute) Medical History Chronic cough Pulmonary infiltrate Lumbar back pain Pulmonary sarcoidosis Boil Surgical History History of colonoscopy (~11/2023) Hyperplastic polyp/inflammatory polyp path sent Fracture, Open Treatment (10/01/12) IM NAILING R TIBIA SHAFT, ORIF FRACTURE MEDIAL MALLEOLUS Social History Smoking/Tobacco Use Status: Never Smoking risk assessment performed?: Yes Alcohol Intake: current Alcohol Intake frequency: a few times a week Alcohol type: beer and hard liquor Drug use: Never Substance use type: does not use Housing: house Do you feel safe at home: Yes Do you feel safe in your relationship?: Yes Time Spent with Patient Time Spent with Patient: <45 minutes Time was spent: preparing to see the patient(eg.review tests), obtaining and/or reviewing separately otained hiistory and counseling the patient
--- NOTE | 2024-05-14 11:41 | PT.INTREAT ---
PT Notes Visit Reasons: Right ankle fracture dislocation Inpatient Physical Therapy Treatment Note [facility] Date: 05/14/24 PRECAUTIONS:NWB R LE and abdominal brace with movement no forward flexion of spine SUBJECTIVE: Pt reports that he is ready to go home. Pt reports that the nerve block has not worn off yet so he still has zero sensation in the R LE. OBJECTIVE: Therapeutic Activities ([id number]]): Direct one-on-one instruction in dynamic activities to improve functional performance. ? BED MOBILITY/TRANSFERS? Rolling L/R: Log rolling for transfers with abdominal brace on. Supine-sit: SBA? Sit-supine: Min assist with LE's ? Sit-stand: SBA? Stand-sit: SBA ? Provided skilled cues and instruction on performance and technique throughout. Gait Training ([id number][]): Direct one-on-one instruction and skilled instruction in: [] employing an assistive device [X] modified weight-bearing status [X] movement sequencing [X] turning and movement with proper form [X] Provided verbal cues for equipment management and technique [X] Provided instruction in gait pattern [] Patient education regarding pacing and breathing techniques to maximize activity tolerance? GAIT? Assistive Device: FWW ? Weight bearing: NWB R LE Assist: CGAx2? Distance:? From bed to door and back ? STAIRS:Pt has 3 steps at home and we discussed a plan for when he gets home how he will accomplish those stairs. It was advised by primary PT to just discuss and be prepared and not attempt due to worry about increase back discomfort. ? Pt has a recliner that he is going to use for the next few days.? ASSESSMENT:? Pt was safe with transfers and ambulation and his and friends will help when he arrives home. PLAN: Pt will be discharged this afternoon wiht . TREATMENT CODE/TIME: 11:15-11:40 (03) TAx2
--- NOTE | 2024-05-17 17:55 | NUR.NOTE ---
Accessed chart for [facility] billing information. Nursing Note:
== END 2024-05-14 14:44 | disposition home health service (06) | DRG 493 ==
LOC: ER 11:34 → MS 13:48
PROVIDERS: Admitting Provider Student in an Organized Health Care Education/Training Program; Emergency Provider Emergency Medicine; PCP Family Medicine; Visit Provider Student in an Organized Health Care Education/Training Program
PROC: 0QSJ04Z Reposition Right Fibula with Internal Fixation Device, Open Approach (ICD-10-PCS; CPT 27814; principal; 2024-05-13 14:15)
DX: S82.841A Displaced bimalleolar fracture of right lower leg, initial encounter for closed fracture (principal); S22.080A Wedge compression fracture of T11-T12 vertebra, initial encounter for closed fracture; S32.020A Wedge compression fracture of second lumbar vertebra, initial encounter for closed fracture; S93.334A Other dislocation of right foot, initial encounter; H90.3 Sensorineural hearing loss, bilateral; R05.3 Chronic cough; W20.8XXA Other cause of strike by thrown, projected or falling object, initial encounter; Y99.0 Civilian activity done for income or pay
CPT/HCPCS: 27814; 27788; 76000; 76942; 80048; 80053; 85027; 86850; 86900; 86901; 96361; 96374; 96375; 97161; 97530; 99285; J1650; 72100; 72128; 72131; 73600; 73610; 73700; 83735; 85025; 85610; J0131; J0665; J0690; J1100; J1170; J1885; J2001; J2250; J2371; J2405; J2704; J3010

== ENCOUNTER 2024-05-25 15:40 | Outpatient (CLI) | payer OTHER, SELFPAY ==
--- NOTE | 2024-05-25 16:08 | DI.RAD_ITS ---
Exam(s) XR ANKLE RT COMPLETE EXAM: XR ANKLE RT COMPLETE CLINICAL HISTORY: f/u ORIF R ankle. TECHNIQUE: 2D digital imaging was performed. Three views. COMPARISON: CR XR ANKLE RT COMPLETE from 05/12/2024 XA XR ANKLE RT 2V from 05/13/2024 FINDINGS: BONES: Intramedullary álvaro is again noted in the tibia. Two screws are noted in the medial malleolus. A lateral malleolar fixation plate is again noted. There is no change in hardware or fracture alig nment. JOINTS: The ankle mortise is normally aligned. The tibiotalar joint space is maintained. SOFT TISSUE: swelling. IMPRESSION: Stable postoperative appearance. DATA REPOSITORY: RADIATION DOSE DELIVERED:
== END 2024-05-25 15:41 | disposition home or self-care (01) ==
LOC: DIORS 15:40
PROVIDERS: PCP Family Medicine; Visit Provider Student in an Organized Health Care Education/Training Program
DX: S82.891A Other fracture of right lower leg, initial encounter for closed fracture (principal)
CPT/HCPCS: 73610

== ENCOUNTER 2024-06-22 15:53 | Outpatient (CLI) | payer OTHER, SELFPAY ==
--- NOTE | 2024-06-22 15:21 | DI.RAD_ITS ---
Exam(s) XR ANKLE RT COMPLETE EXAM: XR ANKLE RT COMPLETE CLINICAL HISTORY: S/P ORIF R ANKLE. TECHNIQUE: 2D digital imaging was performed. COMPARISON: CR XR ANKLE RT COMPLETE from 05/12/2024 CR XR ANKLE RT COMPLETE from 05/25/2024 FINDINGS: 3 views Again noted is previously described hardware both sides the ankle as well as long intramedullary álvaro in the tibia secured by horizontal screw in the distal tibial metaphysis. The lateral fixation plate in the distal fibula secured by 6 screws appears stable. Fracture line not seen. No evidence of ricketts rdware loosening and no evidence of osteomyelitis. Independent screw in the distal fibula is again n oted. Screw in the medial malleolus is again noted as well as another horizontal screw at the juncti on of the metaphysis and epiphysis of the distal tibia. With respect to the medial malleolus, there is still a horizontal fracture line visible in the tip of the medial malleolus which is high just lateral to the screw. Nonunion at this time IMPRESSION: Medial malleolus findings as above. DATA REPOSITORY: RADIATION DOSE DELIVERED:
== END 2024-06-22 15:54 | disposition home or self-care (01) ==
LOC: DIORS 06-23 08:39
PROVIDERS: PCP Family Medicine; Visit Provider Physician Assistant
DX: S82.841D Displaced bimalleolar fracture of right lower leg, subsequent encounter for closed fracture with routine healing (principal); X58.XXXD Exposure to other specified factors, subsequent encounter; Z98.890 Other specified postprocedural states
CPT/HCPCS: 73610

== ENCOUNTER 2024-07-20 15:32 | Outpatient (CLI) | payer OTHER, SELFPAY ==
--- NOTE | 2024-07-20 14:45 | DI.RAD_ITS ---
Exam(s) XR ANKLE RT COMPLETE EXAM: XR ANKLE RT COMPLETE INDICATION: S/P ORIF R ANKLE. COMPARISON: CR XR ANKLE RT COMPLETE from 06/22/2024 TECHNIQUE: 2D digital imaging was performed. Two views. FINDINGS: There has been no change in the hardware in the distal tibia and fibula. The medial malleolar fractu re remains visible. DATA REPOSITORY: RADIATION DOSE DELIVERED:
--- NOTE | 2024-07-20 15:15 | DI.RAD_ITS ---
Exam(s) XR THORACOLUMB JUNCT 2V EXAM: XR THORACOLUMB JUNCT 2V INDICATION: eval L2 and T12 compression fx. COMPARISON: CR XR LUMBAR SPINE AP, LAT from 05/12/2024 TECHNIQUE: 2D digital imaging was performed. AP and lateral views. FINDINGS: Stable mild compression fracture of T12. Stable minimal compression of the superior endplate of L2. No new fractures. IMPRESSION: Stable T12 and L2 compression fractures. DATA REPOSITORY: RADIATION DOSE DELIVERED:
== END 2024-07-20 15:33 | disposition home or self-care (01) ==
LOC: DIORS 15:32
PROVIDERS: PCP Family Medicine; Visit Provider Student in an Organized Health Care Education/Training Program
DX: S82.841A Displaced bimalleolar fracture of right lower leg, initial encounter for closed fracture (principal); S22.080A Wedge compression fracture of T11-T12 vertebra, initial encounter for closed fracture; X58.XXXA Exposure to other specified factors, initial encounter
CPT/HCPCS: 72080; 73610

== ENCOUNTER 2024-10-12 16:03 | Outpatient (CLI) | payer OTHER, SELFPAY ==
--- NOTE | 2024-10-12 15:36 | DI.RAD_ITS ---
Exam(s) XR LUMBAR SPINE AP, LAT EXAM: XR LUMBAR SPINE AP, LAT CLINICAL HISTORY: fx lumbar spine. TECHNIQUE: 2D digital imaging was performed. Two views. AP and lateral standing COMPARISON: CR XR THORACOLUMB JUNCT 2V from 07/20/2024 FINDINGS: BONES: No acute fracture or destructive lesion. Stable compression fractures of T12 and L2. Mild fa cet hypertrophy identified L3-4 through L5-S1. DISKS: Intervertebral disc spaces are maintained. ALIGNMENT: Lumbar spinal alignment is within normal limits. SOFT TISSUE: Calcification in the abdominal aorta. IMPRESSION: Stable T12 and L2 compression fractures. DATA REPOSITORY: RADIATION DOSE DELIVERED:
== END 2024-10-12 16:04 | disposition home or self-care (01) ==
LOC: DIORS 16:04
PROVIDERS: PCP Family Medicine; Visit Provider Physician Assistant
DX: S32.020D Wedge compression fracture of second lumbar vertebra, subsequent encounter for fracture with routine healing (principal); S22.080D Wedge compression fracture of T11-T12 vertebra, subsequent encounter for fracture with routine healing; X58.XXXD Exposure to other specified factors, subsequent encounter
CPT/HCPCS: 72100

== ENCOUNTER 2025-04-27 13:55 | Outpatient (REF) | payer OTHER, SELFPAY ==
[2025-04-27 16:03] LABS: Anion Gap 8.3 mmol/L (3-11); BUN 23 mg/dL (7-18); CO2 27.7 mmol/L (21.0-32.0); CREATININE 0.9 mg/dL (0.70-1.30); Calcium 8.9 mg/dL (8.5-10.1); Calculated LDL 176 mg/dL (<100); Chloride 107 mmol/L (98-107); Cholesterol 238 mg/dL (<200); Estimated GFR 100.24 (mL/min/1.73m2); Glucose 109 mg/dL (74-106); HDL Cholesterol 52 mg/dL (>or=40); Potassium 4.7 mmol/L (3.5-5.1); Sodium 143 mmol/L (136-145); Triglyceride 54 mg/dL (<150)
== END 2025-04-27 13:56 | disposition home or self-care (01) ==
LOC: NCHCN 13:55
PROVIDERS: PCP Family Medicine; Visit Provider Family Medicine
DX: Z00.00 Encounter for general adult medical examination without abnormal findings (principal)
CPT/HCPCS: 80048; 80061

== ENCOUNTER 2025-05-17 08:17 | Outpatient (CLI) | payer OTHER, SELFPAY ==
--- NOTE | 2025-05-17 08:26 | DI.RAD_ITS ---
Exam(s) XR ANKLE RT COMPLETE EXAM: XR ANKLE RT COMPLETE CLINICAL HISTORY: ANNUAL F/U R ANKLE ORIF. TECHNIQUE: 2D digital imaging was performed. Three views. COMPARISON: CR XR ANKLE RT COMPLETE from 06/22/2024 CR XR ANKLE RT COMPLETE from 07/20/2024 FINDINGS: BONES: No acute fracture is present. No bony destructive lesion is seen. The hardware is stable in appearance in the distal tibia and fibula. No abnormal surrounding lucencies. There has been inferomedial displacement of a previously noted bony density which is at the tip the medial malleolus. JOINTS: The ankle mortise is normally aligned. Ankle joint space is maintained. SOFT TISSUE: Normal. IMPRESSION: Inferomedial displacement of the bony fragment previously noted at the tip of the medial malleolus. DATA REPOSITORY: RADIATION DOSE DELIVERED:
== END 2025-05-17 08:18 | disposition home or self-care (01) ==
LOC: DIORS 08:18
PROVIDERS: PCP Family Medicine; Visit Provider Student in an Organized Health Care Education/Training Program
DX: S82.841A Displaced bimalleolar fracture of right lower leg, initial encounter for closed fracture (principal)
CPT/HCPCS: 73610

== ENCOUNTER 2025-10-29 01:39 | Emergency (ER) | payer OTHER, SELFPAY ==
[2025-10-29 01:45] VITALS: BP 150/93; PULSE 61; RESP 18; TEMP 36.4; O2SAT 98
[2025-10-29 02:09] VITALS: BP 150/93; PULSE 61; RESP 18; TEMP 36.4; O2SAT 98
[2025-10-29 02:13] LABS: Abs Immature Grans 0.06 10^3/uL (0.0-0.06); HCT 43.2 % (40.0-50.0); HGB 14.1 g/dL (13.5-17.5); Immature Grans % 0.5 %; MCH 29.3 pg (27.0-33.0); MCHC 32.6 % (32.0-36.0); MCV 90 fL (80-95); MPV 9.3 fL (8.0-11.0); Platelet Count 278 10^3/uL (130-400); RBC 4.82 10^6/uL (4.36-5.78); RDW 13.2 % (11.8-14.1); RDW-SD 43.2 fL; WBC 12.07 10^3/uL (4.4-10.8)
[2025-10-29] MEDS: Lactated Ringers 1,000 ML 1000 ML IV (02:20)
[2025-10-29] MEDS: Ondansetron 4 MG/2 ML VIAL IVP (02:21)
[2025-10-29] MEDS: Ketorolac 15 MG/ML VIAL IVP (02:22)
[2025-10-29] MEDS: ACETAMINOPHEN 1,000 MG/100 ML BAG 400 MG IVPB (02:24)
[2025-10-29] MEDS: MORPHine 10 MG/ML VIAL 4 MG IVP (02:25)
[2025-10-29 02:30] LABS: Lipase 34 U/L (<53)
[2025-10-29 02:32] LABS: ALT 30 U/L (10-49); AST 26 U/L (<34); Albumin 4.4 g/dL (3.2-5.0); Alkaline Phosphatase 83 U/L (46-116); Anion Gap 8.8 mmol/L (3-11); BUN 19 mg/dL (9-23); Bilirubin, Total 0.4 mg/dL (0.2-1.2); CO2 26.2 mmol/L (20.0-31.0); Calcium 8.9 mg/dL (8.3-10.6); Chloride 108 mmol/L (98-107); Glucose 152 mg/dL (74-106); Potassium 3.9 mmol/L (3.5-5.1); Sodium 143 mmol/L (136-145); Total Protein 7.6 g/dL (5.7-8.2)
--- NOTE | 2025-10-29 02:52 | DI.CT_ITS ---
Exam(s) CT ABDOMEN PELVIS WO EXAM: CT ABDOMEN PELVIS WO CLINICAL HISTORY: left flank pain, eval for stone. TECHNIQUE: Imaging Protocol: Axial computed tomography images with coronal and sagittal reformatted images were created and reviewed. COMPARISON: CT CT CHEST WO from 10/07/2024 FINDINGS: ABDOMEN: Lung Bases: Normal where visualized. Liver: Normal density. No measurable mass. Gallbladder and biliary tract: No radiodense calculus or biliary ductal dilation. Pancreas: Normal density, no abnormal calcifications or inflammatory process. Spleen: Normal. Kidneys: Normal size, contour and axis.There is a 4 mm stone in the proximal left ureter causing mild hydronephrosis. There are 2 nonobstructing stones in the lower pole of the left kidney. The larger measures 4 mm. No masses seen. Adrenal glands: No mass is seen. Lymph nodes: Within normal limits. Abdominal Aorta: Abdominal portion non-dilated. Atherosclerotic calcification is present. PELVIS: Bladder:Symmetric distention, no gross wall thickening. Bowel: No obstruction or bowel wall thickening. Appendix is unremarkable. Peritoneal cavity: No ascites, collection or mesenteric inflammatory response. No free air. Reproductive organs: Unremarkable as visualized. Bones: Within normal limits. There are old compression deformity seen at T12 and L2. Soft Tissues: Within normal limits. IMPRESSION: 1. 4 mm stone in the proximal left ureter causing mild hydronephrosis. 2. Left nephrolithiasis. 3. The preliminary [facility] report was reviewed. RADIATION DOSE DELIVERED: 533.24mGy.cm Total DLP DATA REPOSITORY: All CT scans at this facility are submitted to the National Radiology Data Registry (NRDR) Dose Index Registry (DIR) with the [employer] (A[employer]). RADIATION OPTIMIZATION: All CT scans at this facility use at least one of these dose optimization techniques: automated exposure control; mA and/or kV adjustment per patient size (includes targeted exams where dose is matched to clinical indication); or iterative reconstruction.
[2025-10-29] MEDS: Tamsulosin 0.4 MG CAPCR PO (02:53)
--- NOTE | 2025-10-29 03:03 | W.ED.GENAD ---
Discharge Plan Disposition Patient Disposition: Home Condition: Good Discharge Details Clinical Impression: Kidney stone on left side Primary Care Provider: Chase Mehta ED Provider: Mj Crespo Home Meds and New Rx's Prescriptions: New ketorolac 10 mg tablet 10 mg PO TID 5 Days Qty: 15 0RF tamsulosin 0.4 mg capsule 0.4 mg PO DAILY Qty: 10 0RF Discharge Instructions Instructions: Kidney stones in adults Additional Instructions: At this time you have evidence of a small kidney stone. This is likely the cause of your symptoms. This should pass within the next 12 to 48 hours, if not earlier. Please drink plenty of fluids, 10 to 12 cups/day at least. Please add a small amount of lemon juice to every cup of water. Please take 10mg of Ketorolac every 8 hours and 1000 mg of Tylenol every 6 hours as needed for pain. These are the maximum doses of these medicines. Please take the Flomax as directed. This will help in expediting the passage of your kidney stone. If your pain stops, you can stop taking the Flomax. Please strain your urine to collect the stone. This can then be analyzed by your family doctor. If you do not have resolution of your symptoms after 48 to 72 hours please follow-up closely with your family doctor or return here for reassessment. If you notice any worsening of your symptoms, or any new symptoms such as inability to urinate, vomiting, diarrhea, fever, chills, shortness of breath, chest pain, numbness, weakness, or fainting , please return immediately to the emergency department for reevaluation. Please follow up with your primary care provider as soon as possible for reassessment and reevaluation. As always, it was a pleasure participating in your medical care today. Stand Alone Forms: [facility] Prescribed Opioid Consent, Portal Information Referrals: Chase Mehta MD [Primary Care Provider, Medicine] HPI General Date/Time Provider Initiated Documentation: 10/29/25 01:40. HPI Narrative: This is a pleasant 55-year-old man with past medical history of orthopedic traumas, who presents today for evaluation of left flank pain. Pain began at 11 PM, and is aching and stabbing in nature starting in the left flank, and transitioning to the left abdomen and groin. He had associated vomiting. Describes it mainly as a pulling sensation. He denies any dysuria hematuria or frequency. He denies any fever or chills. He did take ibuprofen but this did not change his symptoms. No history of kidney stones. No other complaints at this time. Related Data Home Medications ?Medication ?Instructions ?Recorded ?Confirmed ketorolac 10 mg tablet 10 mg PO TID 5 days #15 tabs 10/29/25 tamsulosin 0.4 mg capsule 0.4 mg PO DAILY #10 caps 10/29/25 Previous Rx's ?Medication ?Instructions ?Recorded ketorolac 10 mg tablet 10 mg PO TID 5 days #15 tabs 10/29/25 tamsulosin 0.4 mg capsule 0.4 mg PO DAILY #10 caps 10/29/25 Allergies Allergy/AdvReac Type Severity Reaction Status Date / Time No Known Allergies Allergy Unverified 10/29/25 01:49 General Stated Complaint: Abd Prob RICO: 3 Exam Narrative Exam Narrative: 1.Const: Well-nourished, Well-developed, appearing stated age 2.Eyes: PERRL, no conjunctival injection, and symmetrical lids. 3.ENT: Atraumatic external nose and ears. Moist MM. Neck: Symmetric, trachea midline, No thyromegaly. 4.CVS: +S1/S2, Peripheral pulses 2+ and equal in all extremities. Brisk capillary refill in all extremities. 5.RESP: Unlabored respiratory effort. Clear to auscultation bilaterally. No wheezes rales or rhonchi 6.GI: Soft, Nontender/Nondistended, No hepatosplenomegaly. No guarding or rebound. No reproducible abdominal pain on exam, no flank or CVA tenderness. 7.MSK: Normocephalic/Atraumatic, Extremities w/o deformity or ttp No cyanosis or clubbing, Normal movement of all extremities 8.Skin: Warm, Dry. No rashes or lesions. 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 Sensation grossly intact, no focal neurologic deficits. 10.Psych: (AAO) x3. Appropriate mood and affect Course Vital Signs Vital signs: Vital Signs Temperature 36.4 C L 10/29/25 01:45 Pulse 61 10/29/25 01:45 Respiratory Rate 18 10/29/25 01:45 Blood Pressure 150/93 H 10/29/25 01:45 Pulse Oximetry 98 10/29/25 01:45 Temperature 36.4 C L 10/29/25 02:09 Temperature Source Oral 10/29/25 02:09 Pulse 61 10/29/25 02:09 Respiratory Rate 18 10/29/25 02:09 Blood Pressure 150/93 H 10/29/25 02:09 Blood Pressure Position Sitting 10/29/25 02:09 Pulse Oximetry 98 10/29/25 02:09 Oxygen Delivery Method Room Air 10/29/25 02:09 Oxygen Flow Rate 0 10/29/25 02:09 Pain Level 1 10/29/25 02:54 Lab/Test Results Lab/Test Results: Laboratory Tests Range/Units 10/29/25 02:00 WBC (4.4-10.8) 10^3/uL 12.07 H RBC (4.36-5.78) 10^6/uL 4.82 Hgb (13.5-17.5) g/dL 14.1 Hct (40.0-50.0) % 43.2 MCV (80-95) fL 90 MCH (27.0-33.0) pg 29.3 MCHC (32.0-36.0) % 32.6 RDW (11.8-14.1) % 13.2 Plt Count (130-400) 10^3/uL 278 MPV (8.0-11.0) fL 9.3 Immature Gran % % 0.5 Neutrophils % % 80.0 Lymphocytes % % 10.4 Monocytes % % 6.9 Eosinophils % % 1.6 Basophils % % 0.6 Nucleated RBC % (0.0-0.3) % 0.0 Absolute Neutrophils (1.2-6.7) 10^3/uL 9.66 H Absolute Lymphocytes (1.2-3.4) 10^3/uL 1.26 Absolute Monocytes (0.1-0.8) 10^3/uL 0.83 H Absolute Eosinophils (0.0-0.7) 10^3/uL 0.19 Absolute Basophils (0.0-0.2) 10^3/uL 0.07 Sodium (136-145) mmol/L 143 Potassium (3.5-5.1) mmol/L 3.9 Chloride (98-107) mmol/L 108 H Carbon Dioxide (20.0-31.0) mmol/L 26.2 Anion Gap (3-11) mmol/L 8.8 BUN (9-23) mg/dL 19 Creatinine (0.73-1.18) mg/dL 1.00 Est GFR (CKD-EPI 2020) (mL/min/1.73m2) 77.12 Glucose (74-106) mg/dL 152 H Calcium (8.3-10.6) mg/dL 8.9 Total Bilirubin (0.2-1.2) mg/dL 0.4 AST (<34) U/L 26 ALT (10-49) U/L 30 Alkaline Phosphatase (46-116) U/L 83 Total Protein (5.7-8.2) g/dL 7.6 Albumin (3.2-5.0) g/dL 4.4 Lipase (<53) U/L 34 Medical Decision Making This is a pleasant 55-year-old man with past medical history of orthopedic traumas, who presents today for evaluation of left flank pain. Pain began at 11 PM, and is aching and stabbing in nature starting in the left flank, and transitioning to the left abdomen and groin. He had associated vomiting. Describes it mainly as a pulling sensation. He denies any dysuria hematuria or frequency. He denies any fever or chills. He did take ibuprofen but this did not change his symptoms. No history of kidney stones. No other complaints at this time. Exam demonstrates an uncomfortable male, but no reproducible abdominal tenderness or flank tenderness. No genital pen tenderness. Symptomatology is concerning for urolithiasis. Differential also includes but less likely diverticulitis. Out of high clinical probability for urolithiasis, we will give Flomax, Ofirmev, morphine and Toradol for pain. Will get CT imaging, rehydrate monitor closely and reassess. 3:57 AM Laboratory workup has returned, minimal white count of 12, no bandemia or left shift of significance. Electrolytes stable. Renal function excellent. Lipase normal. Urinalysis shows blood but no evidence of infection or UTI. Patient's pain is well-controlled and he is feeling much better. CT scan shows evidence of a 2 mm obstructing stone in the proximal left ureter. With no evidence of infection, the patient's pain control, and renal function remaining stable, I do feel that the patient is appropriate for outpatient treatment and management at this stage. Will give prescription for Toradol, Flomax for home. Will give a single bottle of morphine for breakthrough pain for home use. Patient feels comfortable with plan. Discussed red flags for which to return. I have extensively reviewed the treatment plan and discharge instructions with the patient and their family. I have addressed all patient concerns at this time. The patient and family was made aware of what symptoms to monitor for that would warrant a return to the emergency department. Discussed the plan with the patient and family, they demonstrate verbal understanding and agreement with our assessment and plan at this time. The documentation in this chart was dictated using [employer] dictation software. Please excuse any dictation errors. FINDINGS: Heart: Probable cardiomegaly, incompletely visualized. Liver: Normal. No mass. Gallbladder and biliary ducts: Normal. No calcified stones. No ductal dilation. Pancreas: Unremarkable. Spleen: Normal. Adrenal glands: Normal. No mass. Kidneys and ureters: 2 mm obstructing stone in the proximal left ureter causing mild obstructive uropathy. Nonobstructive nephrolithiasis left kidney. Stomach and bowel: No pneumatosis or portal/mesenteric venous gas. Appendix: Normal appendix. Intraperitoneal space: No pneumoperitoneum or abscess. Vasculature: See Stomach and bowel finding. Lymph nodes: Unremarkable. Urinary bladder: Unremarkable as visualized. Reproductive: Prostatomegaly. Bones/joints: Chronic L2 vertebral body mild compression fracture deformity. Soft tissues: Unremarkable. IMPRESSION: 2 mm obstructing stone in the proximal left ureter causing mild obstructive uropathy. Thank you for allowing us to participate in the care of your patient. Dictated and Authenticated by: Gilbert Chinchilla MD 10/29/2025 3:51 AM Eastern Time ([place] & [place]) [facility] All Active Problems (Updated 10/29/25 @ 04:00 by Mj Crespo DO) Kidney stone on left side (Acute) Bimalleolar fracture of right ankle (Acute 05/12/24) S/P ORIF: 05/13/2024 Compression fracture of L2 (Acute) T12 compression fracture (Acute) Back contusion (Acute) Accidentally struck by tree (Acute) Colon polyp (Acute) Screening for malignant neoplasm of colon performed (Acute) Sarcoidosis (Acute) Sensorineural hearing loss (SNHL) of both ears (Acute) Colon cancer screening (Acute) Medical History Chronic cough Pulmonary infiltrate Lumbar back pain Pulmonary sarcoidosis Boil Surgical History History of colonoscopy (~11/2023) Hyperplastic polyp/inflammatory polyp path sent Fracture, Open Treatment (10/01/12) IM NAILING R TIBIA SHAFT, ORIF FRACTURE MEDIAL MALLEOLUS Social History Smoking/Tobacco Use Status: Never Smoking risk assessment performed?: Yes Alcohol Intake: current Alcohol Intake frequency: a few times a week Alcohol type: beer and hard liquor Drug use: Never Substance use type: does not use Housing: house Do you feel safe at home: Yes Do you feel safe in your relationship?: Yes
[2025-10-29 03:28] LABS: Glucose Negative (Negative)
[2025-10-29 03:29] VITALS: BP 131/92; PULSE 64; RESP 16; O2SAT 94
[2025-10-29 03:37] LABS: WBC Negative HPF (0-5)
--- NOTE | 2025-10-29 03:52 | DI.VRAD_ITS ---
PROCEDURE INFORMATION: Exam: CT Abdomen And Pelvis Without Contrast Exam date and time: 10/29/2025 2:42 AM Age: 55 years old Clinical indication: Abdominal pain; Left flank pain, eval for stone. No HX of kidney stones. No gross hemtruia TECHNIQUE: Imaging protocol: Computed tomography of the abdomen and pelvis without contrast. Radiation optimization: All CT scans at this facility use at least one of these dose optimization techniques: automated exposure control; mA and/or kV adjustment per patient size (includes targeted exams where dose is matched to clinical indication); or iterative reconstruction. COMPARISON: CT CHEST WO 10/07/2024 3:06 PM FINDINGS: Heart: Probable cardiomegaly, incompletely visualized. Liver: Normal. No mass. Gallbladder and biliary ducts: Normal. No calcified stones. No ductal dilation. Pancreas: Unremarkable. Spleen: Normal. Adrenal glands: Normal. No mass. Kidneys and ureters: 2 mm obstructing stone in the proximal left ureter causing mild obstructive uropathy. Nonobstructive nephrolithiasis left kidney. Stomach and bowel: No pneumatosis or portal/mesenteric venous gas. Appendix: Normal appendix. Intraperitoneal space: No pneumoperitoneum or abscess. Vasculature: See Stomach and bowel finding. Lymph nodes: Unremarkable. Urinary bladder: Unremarkable as visualized. Reproductive: Prostatomegaly. Bones/joints: Chronic L2 vertebral body mild compression fracture deformity. Soft tissues: Unremarkable. IMPRESSION: 2 mm obstructing stone in the proximal left ureter causing mild obstructive uropathy. Dictated and Authenticated by: Gilbert Chinchilla MD. Orderin Zak Barker MD
[2025-10-29 04:07] VITALS: BP 132/91; PULSE 81; RESP 16; O2SAT 96
[2025-10-29] MEDS: MORPHine IR 15 MG TAB, 4 TABS/BTL PO (04:11)
== END 2025-10-29 04:25 | disposition home or self-care (01) ==
PROVIDERS: Emergency Provider Student in an Organized Health Care Education/Training Program; PCP Family Medicine
DX: N20.0 Calculus of kidney (principal); R10.A2 Flank pain, left side
CPT/HCPCS: 36415; 80053; 83690; 96361; 96365; 96375; 99284; 74176; 81003; 81015; 85025; 87086; J0131; J1885; J2270; J2405